=== PATIENT | female | born 1975 | race Caucasian/White ===

== ENCOUNTER 2024-12-20 09:44 | Outpatient (AMB) | payer OTHER, SELFPAY ==
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
[2024-12-20 09:49] VITALS: BP 110/64; PULSE 74; O2SAT 98; BMI 28.4
--- OUTSIDE RECORDS SUMMARY | 2024-12-20 10:45 | XMS_ITS | Clinical Summary ---
Author Organization [facility] Address [address] [place] [address] Care Team Providers Care Phosphorus Processing Supervisor Name Role Phone Unavailable Primary Care Provider Unavailabl e Social History Tobacco Use Types Packs/Day Years Used Date Smoking Tobacco: Never Assessed Comments Unknown Sex and Gender Information Value Date Recorded Sex Assigned at Not on file Legal Sex Female 1:39 PM EDT Gender Identity Not on file Sexual Orientation Not on file Plan of Treatment Health Maintenance Due Date Last Done Comments Breast Cancer Screening 1975 DTaP,Tdap,and Td Vaccines (1 - Tdap) 1994 Hepatitis B Vaccines (1 of 3 - 19+ 3-dose series) 1994 Colorectal Cancer Screening: Colonoscopy 05/10/2024 Depression Screening 05/10/2024 HIV Screening 05/10/2024 Hepatitis C Screening 05/10/2024 Social Influencers of Health Screening 05/10/2024 COVID-19 Vaccine ( - 2023-2 5 season) 2024 Influenza Vaccine (#1) 2024 Cervical Cancer Screening: P ap Smear 05/22/2027 05/22/2024 HIB Vaccines Aged Out No longer eligi ble based on patient's age to complete this topic HPV Vaccines Aged Out No longer eligi ble based on patient's age to complete this topic Hepatitis A Vaccines Aged Out No long er eligible based on patient's age to complete this topic IPV Vaccines Aged Out No longer eligi ble based on patient's age to complete this topic MMR Vaccines Aged Out No longer eligi ble based on patient's age to complete this topic Meningococcal ACWY Vaccine Aged Out N o longer eligible based on patient's age to complete this topic Meningococcal B Vacine Aged Out No lo nger eligible based on patient's age to complete this topic Pneumococcal Vaccine: Pediat rics (0 to 5 Years) and At-Risk Patients (6 to 64 Years) Aged Out No longer eligi ble based on patient's age to complete this topic RSV Immunization Patients Un izabel 20 months Aged Out No longer eligible b ased on patient's age to complete this topic Varicella Vaccines Aged Out No longer eligible based on patient's age to complete this topic Procedures Procedure Name Priority Date/Time Associated Diagnosis Comments PAP SMEAR Routine 05/22/2024 12:00 AM EDT from Last 3 Months or Most Recently Relevant to Health Maintenance Results * Pap smear (05/22/2024 12:00 AM EDT) Case Results Patient Name: COURTNEY VENEGAS MR#: [id number] Collected Date: 05/22/2024 Reported Date: 05/29/2024 Specimen #[id number] Final Diagnosis HPV request without Cytologic interpretation. See HPV results ?? Clinical Diagnosis Z11.51 Source: A: HPV only B: HPV Mandatory Electronically Signed Out By MICHAELA Su(ASCP) Addenda/Procedure s HPV DNA PROBE, MANDATORY Ordered: ?? 05/24/2024 Reported: ??05/26/2024 HPV HIGH RISK: NEGATIVE None of the following High Risk human papillomavirus (HPV) types has been detected: 16,18,31,33,35,39 ,45,51,52,56,58,5 9,66,and 68. ??The Aptima HPV nucleic acid amplification assay manufactured by [employer] and performed on the [employer] System was used for the qualitative detection of E6/E7 viral messenger RNA (mRNA) from 14 high-risk types of (HPV) in cervical specimens. <<NOTE>> Clinical guidelines for follow up of patients screened with HPV testing can be found in the following reference: Ronda WK , et al. Use of primary high risk human papillomavirus testing for cervical cancer screening: Interim clinical guidance, Gynecol Oncol. 2015 Nov, 136(2):178-82. Procedure/Adden dum Electronically Signed Out By System Interface Note: The Pap test is a screening test with an inherent false negative rate. Automated prescreening of all liquid based specimens is performed by the [employer] Imaging System unless otherwise stated. Test Performed by: [address] ??[id number] Carmenza Rodriguez M.D., Director HISTORICAL TESTING LAB RESULTING AGENCY 05/22/2024 Vanessa Rizo MD LAB CYTOLOGY ORDERABLES Final Re sult HISTORICAL TESTING LAB RESULTING AGENCY from Last 3 Months or Most Recently Relevant to Health Maintenance
--- OUTSIDE RECORDS SUMMARY | 2024-12-20 10:45 | XMS_ITS | Continuity of Care Document ---
Author Organization [facility] SCHEDUL[facility] Oncolog y Address [address] [place] [address]- Care Team Providers Care Signal Processing Engineer Name Role Phone Eliana Craig NP Primary Care Physician [place] [facility] [place] 11/19/24 - 12/19/24 [facility] PRODUCTION [facility]EDUL[facility] Oncology [address] [place] [address]- Encounter Type: Triage Allergies, Adverse Reactions, Alerts No Known Medication Allergies Medications Aloe Vera By Mouth, 0 Refills, Maintenance, 10/10/24 11:09:00 AM EST, Partial fill upon patient request if the prescription is for a schedule II opioid drug. Start Date: 10/10/24 Status: Ordered Repeat number: 1 Chondroitin-Glucosamine By Mouth, Daily, 0 Refills, Maintenance, 10/17/23 10:37:00 AM EST, Partial fill upon patient request if the prescription is for a schedule II opioid drug. Start Date: 10/17/23 Status: Ordered Repeat number: 1 ibuprofen 800 mg oral tablet 800 mg, 1, tablet, By Mouth, Every 8 hours, # 30 tablet, Refills 0, Tot. Refills 0, Maintenance, 11/15/24 4:28:00 PM EST, Route to Pharmacy Electronically, [id number], Partial fill upon patient request if the prescription is for a schedule II opioid drug., 157.48, cm, 11/15/24 12:52:00 EST, Height, 69.2, kg, 11/15/24 12:52:00 EST, Dry Weight Start Date: 11/15/24 Status: Ordered Quantity: 30.0 Unit: tablet Repeat number: 1 letrozole 2.5 mg oral tablet 1 tablet = 2.5 mg, By Mouth, Daily, # 90 tablet, 1 Refills, Maintenance, 09/24/24 1:39:00 PM EST, Tablet, [facility] #[id number], Partial fill upon patient request if the prescription is for a schedule II opioid drug., 156.1, cm, 08/22/24 14:15:00 EST, Height, 68.9, kg, 05/30/24 15:29:00 EDT, Dry Weight Start Date: 09/24/24 Stop Date: 11/23/24 Status: Ordered Quantity: 90.0 Unit: tablet Repeat number: 2 levocetirizine 5 mg oral tablet 0 Refills, Maintenance, 10/10/24 11:09:00 AM EST, Partial fill upon patient request if the prescription is for a schedule II opioid drug. Start Date: 10/10/24 Status: Ordered Repeat number: 1 MiraLax = 17 Gm, By Mouth, Daily, 0 Refills, Maintenance, 09/26/23 1:04:00 PM EST, Partial fill upon patient request if the prescription is for a schedule II opioid drug. Start Date: 09/26/23 Status: Ordered Repeat number: 1 Physical Therapy and Occupational therapy evaluation and treatment Physical Therapy and Occupational therapy evaluation and treatment, See Instructions, # 1 each, Refills 0, Tot. Refills 0, Maintenance, Physical Therapy and Occupational therapy evaluation and treatment for right axillary cording and decreased range of motion., 09/18/24 2:25:00 PM EST, Supply Start Date: 09/18/24 Status: Ordered Quantity: 1.0 Unit: each Repeat number: 1 Tylenol 8 Hour 650 mg oral tablet, extended release 2 tablet = 1,300 mg, By Mouth, Every 8 hours, PRN as needed for fever, # 24 tablet, 0 Refills, Maintenance, 09/26/23 1:04:00 PM EST, ER Tablet, Partial fill upon patient request if the prescription is for a schedule II opioid drug. Start Date: 09/26/23 Status: Ordered Quantity: 24.0 Unit: tablet Repeat number: 1 Vitamin C By Mouth, Daily, 0 Refills, Maintenance, 09/26/23 1:04:00 PM EST, Partial fill upon patient requestif the prescription is for a schedule II opioid drug. Start Date: 12/19/23 Status: Ordered Repeat number: 1 Vitamin D3 1000 intl units oral capsule 1 capsule = 25 mcg, By Mouth, Daily, 0 Refills, Maintenance, 09/26/23 1:04:00 PM EST, Partial fill upon patient request if the prescription is for a schedule II opioid drug. Start Date: 09/26/23 Status: Ordered Repeat number: 1 Problem List Condition Confirmation Course Effective Dates Status H ealth Status Informant Breast cancer Confirmed Active Cervical stenosis (uterine cervix) Confirmed Active Follow-up examination after gynecological surgery Confirmed Active Social History Social History Type Response Smoking Status Never (less than 100 in lifetime) entered on: 09/26/23 Sex Sex Representation Female (finding) Patient Care team information Care Team Personnel Name: Kiara VALLECILLO, Eliana Michael Position: [facility] Associate Professional Member Role: PCP Address: [address] [place] [address] Emergency Medicine [address] Telecom: Name: Angela Franco RN Position: [facility] Onco RN Member Role: Primary Care Nurse Name: Roney Lai RN Position: [facility] Onco RN Member Role: Primary Care Nurse Care Team Related Persons Name: CHINA PRADO Insurance Providers Guarantor name: [facility] Plan Information #: 1 Payer: RAULITO SILVA Member Number: NA Policy Number: NA Group Number: NA
--- OUTSIDE RECORDS SUMMARY | 2024-12-20 10:45 | XMS_ITS | Continuity of Care Document ---
Author Organization [facility] ter Address [address] [place] [address]- Care Team Providers Care Cloth Presser Name Role Phone Kiara VALLECILLO, Eliana Michael Primary Care Physician Encounter [facility] Date(s): 10/25/24 - 11/24/[address] [address]- Attending Physician: Jenifer Corrigan MD Admitting Physician: Jenifer Corrigan MD Encounter Type: Preadmit Daystay Allergies, Adverse Reactions, Alerts No Known Medication Allergies Medications acetaminophen 650 mg oral tablet, extended release 1 tablet = 650 mg, By Mouth, Every 8 hours, for 10 days, # 30 tablet, 0 Refills, Acute 11/25/24 4:28:00 PM EST, 11/15/24 4:28:00 PM EST, ER Tablet, [facility] #[id number], Partial fill upon patientrequest if the prescription is for a schedule II opioid drug., 157.48, cm, 11/15/24 12:52:00 EST, Height, 69.2, kg, 11/15/24 12:52:00 EST, Dry Weight Start Date: 11/15/24 Stop Date: 11/25/24 Status: Ordered Quantity: 30.0 Unit: tablet Repeat number: 1 Aloe Vera By Mouth, 0 Refills, Maintenance, [...] 4:28:00 PM EST, Route to Pharmacy Electronically, [facility] #[id number], Partial fill upon patient request if the [...] Refills, Maintenance, 09/24/24 1:39:00 PM EST, Tablet, [facility] #[id number], Partial fill upon patient request if the [...] Date: 09/26/23 Status: Ordered Repeat number: 1 Vitamin D3 1000 intl units oral capsule 1 capsule = 25 mcg, By Mouth, Daily, 0 Refills, Maintenance, 09/26/23 1:04:00 PM EST, Partial fill upon patient request if the prescription is for a schedule II opioid drug. Start Date: 09/26/23 Status: Ordered Repeat number: 1 Problem List Condition Confirmation Course Effective Dates Status Health St atus Informant Breast cancer Confirmed Active Cervical stenosis (uterine cervix) Confirmed Active Social History Social History Type Response Smoking Status Never (less than 100 in lifetime) entered on: 09/26/23 Sex Sex Representation Female (finding) Patient Care team information Care Team Personnel Name: Eliana Craig NP Position: [facility] Associate Professional Member Role: PCP Address: [address] [place] [address] Emergency Medicine [address] Telecom: Name: Angela Franco RN Position: [facility] RN Member Role: Primary Care Nurse Name: Roney Lai RN Position: [facility] RN Member Role: Primary Care Nurse Care Team Related Persons Name: CHINA PRADO Insurance Providers Guarantor name: COURTNEY VENEGAS Health Plan Information #: 1 Payer: PRIME Member Number: [id number] Policy Number: NA Group Number: NA Health Plan Information #: 2 Payer: PRIME Member Number: [id number] Policy Number: NA Group Number: NA
--- OUTSIDE RECORDS SUMMARY | 2024-12-20 10:45 | XMS_ITS | Patient Health Record ---
Author Organization [facility] Address [address] [place] [address] Care Team Providers Care Outdoor Education Teacher Name Role Phone Cari Escobar Unavailable [phone] ALLERGIES No Known Allergies REASON FOR REFERRAL No Information MEDICATIONS Medication SIG (Take, Route, Fr equency, Duration) Notes Start Date End Date Status Nextstellis 3-14.2 MG 1 tablet Orally On ce a day for 90 day(s) 02/21/2023 Active Estradiol 0.1 MG/GM 1 gram Vaginal Two t imes a Week for 90 days Active Progesterone 100 MG as directed Orally Active Veozah 45 MG 1 tablet Orally Once a day for 90 day(s) 06/02/2023 Active SOCIAL HISTORY Sex Assigned At : Social History Observation Description Sex Assigned At Unknown PROBLEMS Problem Type ICD Code Onset Dates Problem Status W/U Status Risk SNOMED Code Notes Problem Irregular menses (N92.6) Active confirmed 27623911 Problem Perimenopausal symptoms (N95.1) Active confirmed 126364988 Encounters Encounter Location Date Provider Diagnosis [facility] [address] [place] [address] 01/24/2024 Cari Escobar PLAN OF TREATMENT Pending Test Test Name Order Date TISSUE PATHOLOGY, GROSS ONLY 02/21/2023 Insurance Providers Payer Name Payer Address Payer Phone Subscriber Number Group Number Insured Name Patient Relationship to Insured Coverage Start Date Coverage End Date [address] [place] [address] [id number] Chelle Ramesh Self - patient is the insured MEDICAL (GENERAL) HISTORY Surgical History Surgery Date(Month/Year) B/l ear tubes B/l breast reduction and implants (velma e), abdominoplasty 2004 B/l implant replacement (encapsulation) 2005
--- OUTSIDE RECORDS SUMMARY | 2024-12-20 10:45 | XMS_ITS | Continuity of Care Document ---
Author Organization [facility] Address [address] [place] [address]- Care Team Providers Care Electrical Calibrator Name Role Phone Kiara VALLECILLO, Eliana Michael Primary Care Phys[id number] Date[facility]12[facility] - 11/22/[facility] [address] [place], [place] [address] Discharge Disposition: A-D/C Home Attending Physician: Gamal Sweeney MD Admitting Physician: Mitchell Valenzuela MD Referring Physician: Eliana Craig NP Encounter Type: Disch Recurring OP Allergies, Adverse Reactions, Alerts No Known Medication Allergies Medications acetaminophen 650 mg oral tablet, extended release 1 tablet = 650 mg, By Mouth, Every 8 hours, for 10 days, # 30 tablet, 0 Refills, Acute 11/25/24 4:28:00 PM EST, 11/15/24 4:28:00 PM EST, ER Tablet, [facility] #[id number], Partial fill upon patientrequest if the prescription [...] 4:28:00 PM EST, Route to Pharmacy Electronically, [facility] #[id number], Partial fill upon patient request if the [...] Refills, Maintenance, 09/24/24 1:39:00 PM EST, Tablet, [facility] #[id number], Partial fill upon patient request if the [...] Team Personnel Name: Eliana Craig NP Position: [facility] Associate Professional Member Role: PCP Address: [address] [place] [address] Emergency Medicine [address] Telecom: Name: Angela Franco RN Position: [facility] Onco RN Member Role: Primary Care Nurse Name: Roney Lai RN Position: [facility] Onco RN Member Role: Primary Care Nurse Care Team Related Persons Name: CHINA PRADO Insurance Providers Guarantor name: COURTNEY VENEGAS Health Plan Information #: 1 Payer: PRIME Member Number: [id number] Policy Number: NA Group Number: NA Health Plan Information #: 2 Payer: [facility] Member Number: [id number] Policy Number: NA Group Number: NA
--- OUTSIDE RECORDS SUMMARY | 2024-12-20 10:45 | XMS_ITS ---
Author Organization [employer] Address [facility] [address] [place] [address] Care Team Providers Care Business Analyst Project Manager Name Role Phone ShawnBetoia Unavailable [phone] REASON FOR VISIT Well Woman/Yearly/Annual Encounters Encounter Location Date Provider Diagnosis [address] [address] [place] [address] 01/24/2024 Cari Escobar PLAN OF TREATMENT No Information Progress Notes * Chelle VENEGASDOB:1975 (49 yo F)Acc No.[id number]:01/24/2024 Est. Patient Well woman Patient:??Chelle VENEGAS Provider:??Cari Escobar MD :1975?Age:48 Y?Sex:Fe male Date:01/24/2024 Address:[address] [place] [address] [facility] Structured Data:Intergy (1) : 018; Intergy (2) : 154; Intergy (3) : 306 Subjective: * Chief Complaints: * ?1. Well Woman/Yearly/A nnual. * Medical History:?? Objective: Assessment: Plan: * Treatment: * Billing Information: * Visit Code:?? * Procedure Codes:?? * Sign off status: Pending * Provider:??Cari Escobar MD Date:??01/23
--- OUTSIDE RECORDS SUMMARY | 2024-12-20 10:45 | XMS_ITS | Continuity of Care Document ---
Author Organization [facility]. If a dditional information is needed, contact Health Information Management at [phone] Address [address] [place] [address] Phone Care Team Providers Care Training Program Assistant Name Role Phone Unavailable Unavailable Unavailable Unavailable Unavailable Unavailable Unavailable Unavailable Unavailable Unavailable Unavailable Unavailable Problems Pain in right lower limb Onset:27-Jul-2023 Lito Ram MD Contusion of toe Allergies and Adverse Reactions No Known Allergies(Allergy) Onset: 12-Sep-2013 Medications polyethylene glycol 3350 170 00 MG Powder for Oral Solution;17 GRAM ORAL DAILY Start:26-Jul-2023 Comments:17 GM PO DAILY potassium chloride 10 MEQ Ex tended Release Oral Tablet;10 MILLIEQUIVALENT ORAL DAILY Start:12-Sep-2013 Comments:10 MEQ PO DAILY MULTIVITAMINS CAPSULES;1 CAP SIRI ORAL DAILY Start:12-Sep-2013 Comments:1 CAP PO DAILY Social History Smoking Status Never smoked tobacco Recorded: 26-Jul-2023
--- OUTSIDE RECORDS SUMMARY | 2024-12-20 10:45 | XMS_ITS | Patient Health Record ---
Author Organization [facility] Address [address] [place] [address] [address] [place] [address] Care Team Providers Care Cad Application Support Specialist Name Role Phone Cari Escobar Unavailable [phone] ALLERGIES No Known Allergies REASON FOR REFERRAL No Information MEDICATIONS Medication SIG (Take, Route, Fr equency, Duration) Notes Start Date End Date Status Progesterone 100 MG as directed Orally Active Veozah 45 MG 1 tablet Orally Once a day for 90 day(s) 06/02/2023 Active Estradiol 0.1 MG/GM 1 gram Vaginal Two t imes a Week for 90 days Active Nextstellis 3-14.2 MG 1 tablet Orally On ce a day for 90 day(s) 02/21/2023 Active SOCIAL HISTORY Tobacco Use: Social History Observation Description Date Details (start date - stop date) Never Smoker NA - NA Sex Assigned At : Social History Observation Description Sex Assigned At Unknown Tobacco Use/Smoking Question Answer Notes Are you a nonsmoker? Yes Alcohol Screen (Audit-C) Question Answer Notes Did you have a drink contain ing alcohol in the past year? Yes How often did you have a dri nk containing alcohol in the past year? Monthly or less (1 point) How many drinks did you have on a typical day when you were drinking in the past year? 1 or 2 drinks (0 point) How often did you have 6 or more drinks on one occasion in the past year? Never (0 point) Points 1 Interpretation Negative Sexual History Question Answer Notes Had sex in the past 12 months (vaginal, oral, or anal)? 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 Exercise: 1-2/wk biking, yoga Alcohol: socially Denies cigarrete or drug use PROBLEMS Problem Type ICD Code Onset Dates Problem Status W/U Status Risk SNOMED Code Notes Problem Anxiety (F41.9) Active confirmed 639974 02 Problem Irregular menses (N92.6) Active confirmed 98985176 Problem History of breast implant (Z98.82) Active confirmed 771868862 Problem Right lower quadrant abdominal pain (R10.31) Active confirmed 157364846 Problem Perimenopausal symptoms (N95.1) Active confirmed 952686181 Problem Hoarseness of voice (R49.0) Active confirmed 18275138 Encounters Encounter Location Date Provider Diagnosis [facility] [address] [place] [address] 01/24/2024 Cari Escobar [facility] [address] [place] [address] 02/08/2024 Cari Escobar PLAN OF TREATMENT Pending Test Test Name Order Date Ultrasound : Breasts, bilateral 03/11/20 Diagnostic Mammogram 03/11/2021 MRI : Knee, left 09/19/2018 Ultrasound : Abdomen and Pelvis 07/16/20 18 MRI : Knee, right 09/19/2018 TISSUE PATHOLOGY, GROSS ONLY 02/21/2023 MEDICAL (GENERAL) HISTORY Medical History History ICD Code Hormonal Therapy Surgical History Surgery Date(Month/Year) B/l implant replacement (encapsulation) 2004 B/l breast reduction and implants (salin e), abdominoplasty 2004 B/l ear tubes breast lift Adriana [facility] Hospitalization History Reason Date(Month/Year) Child 02/23/1999, 1
--- OUTSIDE RECORDS SUMMARY | 2024-12-20 10:45 | XMS_ITS | Continuity of Care Document ---
Author Organization [facility] Address [address] [place] [address]- Care Team Providers Care Cargo Operations Agent Name Role Phone Eliana Craig NP Primary Care Physician Encounter [facility] Date(s): 11/05/24 - 12/05/24 [facility] [address] [place] [address]- Encounter Type: Triage Allergies, Adverse Reactions, Alerts [...] 4:28:00 PM EST, Route to Pharmacy Electronically, [facility] #[id number], Partial fill upon patient request if the [...] Refills, Maintenance, 09/24/24 1:39:00 PM EST, Tablet, [facility] #[id number], Partial fill upon patient request if the [...] Personnel Name: Kiara VALLECILLO, Eliana Michael Position: [facility] Associate Professional Member Role: PCP Address: [address] [place] [address] Emergency Medicine [address] Telecom: Name: Angela Franco RN Position: [facility] Onco RN Member Role: Primary Care Nurse Name: Roney Lai RN Position: [facility] Onco RN Member Role: Primary Care Nurse Care Team Related Persons Name: CHINA PRADO Insurance Providers Guarantor name: [facility] Plan Information #: 1 Payer: RAULITO SILVA Member Number: NA Policy Number: NA Group Number: NA
--- OUTSIDE RECORDS SUMMARY | 2024-12-20 10:45 | XMS_ITS ---
Author Organization [employer] Address [facility] [address] [place] [address] Care Team Providers Care Staff Midwife/Apprenticeship Director Name Role Phone EscobarBeto bradleyia Unavailable [phone] REASON FOR VISIT Est Patient: Annual Preventative Exam and Chronic Care Visit Encounters Encounter Location Date Provider Diagnosis [facility] [address] [address] [place] [address] 02/08/2024 Cari Escobar PLAN OF TREATMENT No Information Progress Notes * Chelle RAMESHDOB:1975 (49 yo F)Acc No.[id number]:02/08/2024 Est. Patient Well woman Patient:??Chelle RAMESH Provider:??Cari Escobar MD :1975?Age:48 Y?Sex:Fe male Date:02/08/2024 Address:[address] [place] [address] [id number] Structured Data:Intergy (1) : 018; Intergy (2) : 154; Intergy (3) : 306 Subjective: * Chief Complaints: * ?1. Est Patient: Annual Preventative Exam and Chronic Care Visit. * Medical History:?? Objective: Assessment: Plan: * Treatment: * Billing Information: * Visit Code:?? * Procedure Codes:?? * Sign off status: Pending * Provider:??Cari Escobar MD Date:??02/07
--- OUTSIDE RECORDS SUMMARY | 2024-12-20 10:46 | XMS_ITS | Continuity of Care Document ---
Author Organization [facility] Address [address] [place] [address]- Care Team Providers Care Melter Supervisor Open Hearth Furnace Name Role Phone Kiara VALLECILLO, Eliana Michael [facility] Phys[id number] Date[facility] 11/27[facility]24 - 11/28/24 [facility] [place], [place] [address] Discharge Disposition: A-D/C Home Attending Physician: Gamal Sweeney MD Admitting Physician: Gamal Sweeney MD Referring Physician: Eliana Craig NP Encounter [...] 4:28:00 PM EST, Route to Pharmacy Electronically, [facility] #[id number], Partial fill upon patient request if the [...] Refills, Maintenance, 09/24/24 1:39:00 PM EST, Tablet, [facility] #[id number], Partial fill upon patient request if the [...] Personnel Name: Kiara VALLECILLO, Eliana Michael Position: [facility] Associate Professional Member Role: PCP Address: [address] [place] [address] Emergency Medicine [address] Telecom: Name: Angela Franco RN Position: [facility] Onco RN Member Role: Primary Care Nurse Name: Roney Lai RN Position: [facility] Onco RN Member Role: Primary Care Nurse Care Team Related Persons Name: CHINA PRADO Insurance Providers Guarantor name: COURTNEY THEO Health Plan Information #: 1 Payer: [employer] Member Number: [id number] Policy Number: NA Group Number: NA Health Plan Information #: 2 Payer: PRIME Member Number: [id number] Policy Number: NA Group Number: NA
--- OUTSIDE RECORDS SUMMARY | 2024-12-20 10:46 | XMS_ITS | Patient Health Record ---
Author Organization [facility] Address [address] [place] [address] Care Team Providers Care Automatic Drilling Machine Operator Name Role Phone Ez BAKER, George Unavailable [phone] Allergies No Known Allergies Reason For Referral No Information Medications Medication SIG (Take, Route, Frequency, Duration) Notes Start Date End Date Status Hydrocortisone (Perianal) 2.5 % 1 application Externally Twice a day for 14 days 07/19/2022 Active Clenpiq 10-3.5-12 MG-GM -GM/160ML as directed Orally as directed for 1 days 07/19/2022 Active Progesterone 100 MG as directed Orally 07/19/2022 Active Pantoprazole Sodium 40 MG 1 tablet Orall y Once a day for 90 days 07/19/2022 Active Immunizations Vaccine Route Administration Date Status Comme nts COVID-19 Pfizer 30mcg/0.3 mL dose Unknown 07/19/2021 Ad ministered Social History Tobacco Use: Social History Observation Description Date Details (start date - stop date) Never Smoker NA - NA Tobacco Use/Smoking (Archived) Question Answer Notes Are you a? nonsmoker Additional Findings: Tobacco Non-User Current no n-smoker Alcohol Screen (Audit-C) Question Answer Notes Did you have a drink containing alcohol in the p ast year? No Points 0 Interpretation Negative Problems Problem Type SNOMED Code ICD Code Onset Dates Problem Status W/U Status Risk Notes Problem Constipation (31997259) Constipation (K59.00) Active confirmed Plan Of Treatment Future Test Test Name Order Date Colonoscopy 07/26/2022 EGD 07/26/2022 Insurance Providers Payer Name Payer Address Payer Phone Subscriber Number Group Number Insured Name Patient Relationship to Insured Coverage Start Date Coverage End Date [facility] [address] [place] [address] [id number] Chelle Ramesh Self - patient is the insured Medical (General) History Surgical History Surgery Date(Month/Year) Ear Tubes Tummy Tuck Breast Lift
--- OUTSIDE RECORDS SUMMARY | 2024-12-20 10:46 | XMS_ITS | Clinical Summary ---
Author Organization [facility] Address [address] [place] [address] Care Team Providers Care Training Project Manager Name Role Phone Unavailable Primary Care Provider Unavailabl e Social History Tobacco Use Types Packs/Day Years Used Date Smoking Tobacco: Never Assessed Sex and Gender Information Value Date Recorded Sex Assigned at Not on file Gender Identity Not on file Sexual Orientation Not on file Job Start Date Occupation Industry Not on file Not on file Not on file Plan of Treatment Not on file
--- OUTSIDE RECORDS SUMMARY | 2024-12-20 10:46 | XMS_ITS ---
Author Organization [facility] Address [address] [place] [address] Care Team Providers Care Orientor Name Role Phone Cari Escobar Unavailable [phone] REASON FOR VISIT Well Woman/Yearly/Annual Encounters Encounter Location Date Provider Diagnosis [facility] [address] [place] [address] [address] [place] [address] 01/24/2024 Cari Escobar PLAN OF TREATMENT No Information
== END 2024-12-20 10:43 | disposition home or self-care (01) ==
LOC: HO.HMCH 09:44
DX: C50.919 Malignant neoplasm of unspecified site of unspecified female breast (principal); K59.00 Constipation, unspecified; M25.561 Pain in right knee; R13.10 Dysphagia, unspecified

== ENCOUNTER → 2024-12-20 09:44 | Outpatient (BNVA) | payer OTHER, SELFPAY | DX: C50.919 Malignant neoplasm of unspecified site of unspecified female breast (principal); K59.00 Constipation, unspecified; M25.561 Pain in right knee; R13.10 Dysphagia, unspecified | CPT/HCPCS: 96127; 99202 ==

== ENCOUNTER 2025-03-17 10:54 | Outpatient (AMB) | payer OTHER, SELFPAY ==
--- NOTE | 2025-03-17 10:59 | A.OFFPC_ITS ---
Vital Signs 03/17/25 11:02 Height 5 ft 2 in Weight 157 lb 2 oz BMI 28.7 BP 110/60 Blood Pressure Location Lt brachial Position Sitting Pulse 67 Pulse Source Pulse Oximeter Temp 97.1 F Temp Source Temporal Artery Scan Pulse Oximetry (%) 98 Oxygen Delivery Method Room Air Intake Visit Reasons: annual exam Intake Note: Patient is here today for a physical. Motor Vehicle Or Caravan Salesperson Required: No Gi Technician: Not Required per policy Accompanied by: Self / Same As Patient Allergies No Known Allergies Allergy (Verified 03/17/25 11:20) Medication List - Last Reconciled 03/17/25 by Maddy uDnne PA-C acetaminophen ER 650 mg PO Q8H ibuprofen mg PO 3XD letrozole mg PO DAILY levocetirizine 5 mg PO DAILY loratadine mg PO DAILY PRN tretinoin 0.025% appl topical DAILY urea 40% appl topical Tobacco use date assessed: 03/17/25 Dental Screening Dental Screen Date: 12/20/24 HPI annual exam HPI Details 49-year-old female with past medical his tory of breast cancer last seen 12/2024 coming in for annual exam. Presenting with management needs for axillary web syndrome, recent constipation problems, and bilateral joint pain, specifically in the hip and knee. 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 Constipation has been chronic, with periods of abdominal pain severe enough to require ER inte rvention. Benefiber altered the laxative effect, showing improvement. The right hip displays pain exacerbated by moments requiring standing; causation by a past repetitive onset knee movement during physical therapy has been started. Knee pain began amidst post-surgical yoga participation, with tearing sensations causing intermittent distress. An insect bite, likely non-tick as evaluated through telehealth consultation, showed initial intense local reaction but resolved without antibiotics. Oncologist: [facility] Gamal Lakhani Sole Rounder: [facility] Dr. Vanessa Lombardo colonoscopy: appt with gastro in May [facility] Surgical History History of cervical biopsy H/O liposuction H/O abdominoplasty Hx of breast implants, bilateral H/O cervical polypectomy H/O lumpectomy Family History Father Prostate cancer Other Diabetes Hypertension Osteoporosis Social History Housing: House Patient Tobacco Use Status: Never used Tobacco e-Cigarette/Vaping Use: Never Used Second Hand Smoke Exposure: No service: No Current occupational status: employed Current occupational exposures/hazards: No Cognitive needs: No Hearing needs: No Vision needs: No Questionnaire Thrive Questionnaire Date Thrive assessed: 12/20/24 I am a: Patient What is your living situation today?: I have a steady place to live Within the past 12 months, did the food you bought not last and you didn't have the money to get more?: Never true Within the past 12 months, did you worry whether your food would run out before you got money to buy more?: Never true Do you have trouble paying for medicines?: No Do you have trouble getting transportation to medical appointments?: No Do you have trouble paying your heating and electricity bill?: No Do you have trouble taking care of your child, family member or friend?: No Do you have trouble with day-to-day activities such as bathing, preparing meals, shopping, managing finances, etc.?: No Are you currently unemployed and looking for a job?: Yes Are you interested in more education?: Yes Please select the resources that you would like help with: Job search/training THRIVE Score: 0 LORRAINE-7 AMB Questionnaire LORRAINE-7 Date LORRAINE - 7 assessed: 12/20/24 Source: Developed by Drs. Bruce Jamison, Gladys Mcintosh, Hernan Larkin and colleagues, with an educational margi from [employer]. Review of Systems Const Denies body aches, Denies chills, Denies fever(s), Denies headache(s) and Denies poor appetite Eyes Reports no additional complaints ENT Reports dysphagia, Denies dizziness, Denies headache(s) and Denies odynophagia Card Denies chest pain, Denies syncope, Denies edema, Denies irregular heart rhythm, Denies lightheadedness and Denies dyspnea Resp Denies cough and Denies dyspnea GI Reports abdominal pain (w/ constipation ), Reports constipation, Reports dyspha paulo, Denies diarrhea, Denies nausea, Denies odynophagia and Denies vomiting Reports no additional complaints Musc Reports no additional complaints and Denies abnormal gait Skin/Breast Reports system reviewed and no additional complaints, except as documented Neuro Denies abnormal gait, Denies dizziness, Denies syncope and Denies headache(s) Psych Reports no additional complaints Physical exam (Primary Care) Vital Signs: Last Vital Signs Temp 97.1 F 03/17/25 11:02 Pulse 67 03/17/25 11:02 BP 110/60 03/17/25 11:02 Pulse Ox 98 03/17/25 11:02 Oxygen Delivery Method Room Air 03/17/25 11:02 BMI result Body Mass Index 28.7 Tobacco/Smoking Status: Tobacco use Status Tobacco use date assessed 03/17/25 03/17/25 11:09 Patient Tobacco Use Status Never used Tobacco 03/17/25 11:00 e-Cigarette/Vaping Use Never Used 03/17/25 11:00 Thrive Assessment: Date of Thrive Assessment Date Thrive assessed 12/20/24 03/17/25 11:00 Const General: cooperative, healthy appearing, comfortable and no acute distress Orientation/consciousness: patient oriented x3 HENMT Head: Yes normocephalic Ears: hearing grossly normal bilaterally General nose exam: Normal external nose present Face and sinus: Yes normal facial exam and Yes sinuses nontender Mouth: Normal oral and palatal mucosa present and tongue normal Throat: Yes posterior oropharynx normal Eyes General: appearance normal, both eyes and all related structures Conjunctivae: conjunctivae normal Pupils: Equal, round and reactive pupils present EOM: EOMs intact bilaterally and No Nystagmus present Neck Neck: Yes full ROM and Yes no lymphadenopathy Chest Chest palpation & inspection: normal inspection of the chest Resp Effort & Inspection: normal respiratory effort Auscultation: clear to auscultation bilaterally, no crackles, no rales, no rhonchi and no wheezes Cardio Rate: regular rate Rhythm: regular rhythm Peripheral pulses: radial pulses present and dorsalis pedis present GI Inspection: Yes normal to inspection and No Abdominal wall edema Palpation (GI): Soft to palpation, not firm and nontender Auscultation: normal bowel sounds Rectal Exam - Female: deferred General: Yes no CVA tenderness Back/Spine/Pelvis Other: No tenderness to palpation over right hip Back: no CVA tenderness Skin General skin exam: no rashes or lesions noted Neuro General: patient oriented x3 Cranial nerves: Yes Equal, round and reactive pupils present, Yes Midline tongue present, Yes Ability to bilaterally elevate shoulders present and No Nystagmus present Gait exam (Neuro): Normal gait present Extrem Other: Tenderness to palpation over bilateral knees and no swelling General: Yes normal to inspection, Yes full ROM and No edema Psych Speech and movement: Normal speech and movement present Affect: normal affect Attitude: cooperative Insight: Good insight present (Psych) Judgement: Good judgement present (Psych) Coding Level of Care Code Est Pt Prev Care 40-64y(37815) Diagnoses Annual physical exam Z00.00 Axillary web syndrome L76.82; L90.5 Constipation K59.00 Breast cancer C50.919 Right hip pain M25.551 Left knee pain M25.562 Bug bite W57.XXXA Assessment & Plan Assessment & Plan (1) Annual physical exam: Code(s): Z00.00 - Encounter for general adult medical examination without abnormal findings Category: Medical Plan: Patient is up-to-date on all recommended routine screenings and vaccinations for her age. She has been appointment in May with Gastroenterology for colonoscopy screening. Blood work is up-to-date and has been reviewed with the patient today. Healthy diet and regular exercise is encouraged. (2) Axillary web syndrome: Code(s): L76.82 - Other postprocedural complications of skin and subcutaneous tissue; L90.5 - Scar conditions and fibrosis of skin Category: Medical Plan: Recently diagnosed by physical therapist. Continue to work with PT (3) Constipation: Code(s): K59.00 - Constipation, unspecified Category: Medical Plan: Constipation has improved with increased fluid intake and fiber supplement. Continue on Benefiber. Reviewed 3 rules of constipation; stay well hydrated, exercise as tolerated and increase fiber intake (4) Breast cancer: Comment: 05/2023 s/p lumpectomy and radiation [facility] Lupron shots every 3 months and Letrozole daily Code(s): C50.919 - Malignant neoplasm of unspecified site of unspecified female breast Category: Medical Plan: Continue to follow with [facility] and say up-to-date with routine mammograms. (5) Right hip pain: Code(s): M25.551 - Pain in right hip Category: Medical Plan: Patient is currently working with physical therapy for right hip pain. She is also requesting an x-ray in order has been placed (6) Left knee pain: Code(s): M25.562 - Pain in left knee Category: Medical Plan: Patient having left knee pain and is requesting knee x-ray which was ordered today. I offered physical therapy which was declined today (7) Bug bite: Code(s): W57.XXXA - Bitten or stung by nonvenomous insect and other nonvenomous arthropods, initial encounter Category: Medical Plan: Patient has a bug bite on her arm that is previously evaluated by walk-in clinic. Patient is requesting a Lyme panel. Low suspicion for tick bite at this time as no tick was found and by his more consistent with spider or mosqui to bite. Lyme panel was ordered at patient request Plan This note was constructed using voice recognition software. While every effort has been made to ensure accuracy and engineer automated equipment, still areas may have been included sometimes these areas may affect the content or meeting of the given symptoms. Total time spent caring for the patient today was 30 minutes. This includes time spent before the visit reviewing the chart, time spent during the visit, and time spent after the visit and documentation. Patient was informed and verbally consented to the use of an ambient scribe for clinic note documentation during this visit. Orders: Orders XR hip RT min 2V Today M25.551 - Pain in right hip XR knee LT 2V Today M25.562 - Pain in left knee Lyme IgG/IgM w/reflex to WB Today W57.XXXA - Bitten or stung by nonvenomous insect and other nonvenomous arthropods, initial encounter
[2025-03-17 11:02] VITALS: BP 110/60; PULSE 67; TEMP 36.2; O2SAT 98; BMI 28.7
--- OUTSIDE RECORDS SUMMARY | 2025-03-17 12:24 | XMS_ITS | Continuity of Care Document ---
Author Organization [facility] Address [address] [place] [id number]- Care Team Providers Care National Accounts Recruiter Name Role Phone Eliana Craig NP Primary Care Physician [id number] Date(s): 02/05/25 - 03/16/[address] [address]- Encounter Diagnosis Procedure and treatment not carried out, unspecified reason(Final) - Discharge Disposition: A-D/C Home Attending Physician: Eliana Craig NP Admitting Physician: Not on Staff, Admitting MD Referring Physician: Not on Staff, Referring MD Encounter Type: Pre-OutPatient One Time Allergies, Adverse Reactions, Alerts No Known Medication [...] 4:28:00 PM EST, Route to Pharmacy Electronically, [facility] #[id number], Partial fill upon patient request if the prescription is for a schedule II opioid drug., 157.48, cm, 11/15/24 12:52:00 EST, Height, 69.2, kg, 11/15/24 12:52:00 EST, Dry Weight Start Date: 11/15/24 Status: Ordered Quantity: 30.0 Unit: tablet Repeat number: 1 letrozole 2.5 mg oral tablet 1 tablet, By Mouth, Daily, # 90 tablet, 0 Refills, Maintenance, 02/10/25 8:24:00 AM EDT, [facility] #[id number], 157.48, cm, 12/31/24 11:06:00 EDT, Height, 71.9, kg, 12/26/24 9:43:00 EDT, Dry Weight Start Date: 02/10/25 Status: Ordered Quantity: 90.0 Unit: tablet Repeat number: 1 levocetirizine 5 mg oral tablet 0 Refills, Maintenance, 10/10/24 11:09:00 AM EST, Partial fill upon patient request if the prescription is for a schedule II opioid drug. Start Date: 10/10/24 Status: Ordered Repeat number: 1 Lupron 0 Refills, Maintenance, 12/26/24 11:49:00 AM EDT, Partial fill upon patient request if the prescription is for a schedule II opioid drug. Start Date: 12/26/24 Status: Ordered Repeat number: 1 MiraLax = [...] Date: 09/26/23 Status: Ordered Repeat number: 1 Voltaren Arthritis Pain 1% topical gel 2.25 inches, Topically, 4 times a day, PRN Pain , Mild, use dosing card to measure a dose do not use on more than 2 bodyareas at the same time apply to clean, dry, intact skin, # 150 Gm, 0 Refills, Maintenance, 12/26/24 3:32:00 PM EDT, Gel, [facility] #[id number], Partial fill upon patient request if the prescription is for a schedule II opioid drug., 2.25 inches Topically 4 times a day,PRN:Pain , Mild,Instr:use dosing card to measure a dose; do not use on more than 2 bodyareas at the same time; apply to clean, dry, intact skin, 157.48, cm, 12/26/24 9:43:00 EDT, Height, 71.9, kg, 259:43:00 EDT, Dry Weight Start Date: 12/26/24 Status: Ordered Quantity: 150.0 Unit: g Repeat number: 1 Problem List Condition Confirmation [...] Team Personnel Name: Eliana Craig NP Position: S Associate Professional Member Role: PCP Address: [address] [place] [address] Emergency Medicine [address] Telecom: Name: Angela Franco RN Position: S Onco RN Member Role: Primary Care Nurse Name: Roney Lai RN Position: S Onco RN Member Role: Primary Care Nurse Care Team Related Persons Name: CHINA PRADO Insurance Providers Guarantor name: [facility] Information #: 1 Payer: [facility] Payer Identifier: NA Member Number: [id number] Group Number: [id number] Subscriber Identifier: [id number] Relationship to Subscriber: self Coverage Type: () Coverage Verification Date: NA Telecom: NA Address: NA
== END 2025-03-17 11:50 | disposition home or self-care (01) ==
LOC: HO.HMCH 10:55
DX: Z00.00 Encounter for general adult medical examination without abnormal findings (principal); L76.82 Other postprocedural complications of skin and subcutaneous tissue; C50.919 Malignant neoplasm of unspecified site of unspecified female breast; L90.5 Scar conditions and fibrosis of skin; K59.00 Constipation, unspecified; M25.551 Pain in right hip; M25.562 Pain in left knee; W57.XXXA Bitten or stung by nonvenomous insect and other nonvenomous arthropods, initial encounter

== ENCOUNTER 2025-04-21 09:24 | Outpatient (REF) | payer OTHER, SELFPAY ==
--- NOTE | ~2025-04-21 | XR_ITS ---
CLINICAL HISTORY: M25.551 - Pain in right hip Right hip two views Comparison: None provided Findings: No acute fracture or dislocation identified. Mild degenerative change in the hip joint. No radiopaque foreign body noted. Impression: No acute bony abnormality This document has been electronically signed by: Marcio Hawkins MD on 04/21/2025 20:03:40
--- NOTE | ~2025-04-21 | XR_ITS ---
CLINICAL HISTORY: M25.562 - Pain in left knee Left knee two views Comparison: None provided Findings: No acute fracture or dislocation noted. No significant joint effusion identified. No soft tissue foreign body. Impression: No acute bony abnormality This document has been electronically signed by: Marcio Hawkins MD on 04/21/2025 20:02:53
--- OUTSIDE RECORDS SUMMARY | 2025-04-21 09:50 | XMS_ITS | Continuity of Care Document ---
Author Name [facility] Organization [facility] Care Team Providers Care Table Maker Name Role Phone [facility] Unavailable Unavailable Medications Combined list of outpatient medications from Department of Defense and Veterans Affairs facilities.Medications provided include 1) outpatient medications from the last 15 months, and 2) patient-reported medications. Medication Details Route Status Patient Instructions Prescription Expires Prescription Number Last Dispense Date Ordering Provider Order Date Order Qty Source FLUCONAZOLE (FLUCONAZOL E), 150 MG, TABLET, ORAL, 'S LAB, 12 ea. BLIST PACK Cancele d [id number] : 2023 0 Pharmac y Data Transac tion Service Facilit y LEVOCETIRIZ INE DIHYDROCHLO RIDE (LEVOCETIRI ZINE DIHYDROCHLO RIDE), 5 MG, TABLET, ORAL, CAMBER PHARMACE, 90 ea. BOTTLE Active [id number] 4 2023 30 Pharmac y Data Transac tion Service Facilit y LEVOCETIRIZ INE DIHYDROCHLO RIDE (LEVOCETIRI ZINE DIHYDROCHLO RIDE), 5 MG, TABLET, ORAL, CAMBER PHARMACE, 90 ea. BOTTLE Active [id number] 4 2023 90 Pharmac y Data Transac tion Service Facilit y LEVOCETIRIZ INE DIHYDROCHLO RIDE (LEVOCETIRI ZINE DIHYDROCHLO RIDE), 5 MG, TABLET, ORAL, CAMBER PHARMACE, 90 ea. BOTTLE Active [id number] 4 2023 30 Pharmac y Data Transac tion Service Facilit y LORATADINE (loratadine ), 10 MG, TABLET, ORAL, GRANULES PHARMA, 300 ea. BOTTLE Active [id number] 4 2023 30 Pharmac y Data Transac tion Service Facilit y NITROFURANT OIN MONO-MACRO (NITROFURAN TOIN MONOHYD/M-C RYST), 100 MG, CAPSULE, ORAL, [employer]VOGEN INC, 100 ea. BOTTLE Active [id number] 4 2023 14 Pharmac y Data Transac tion Service Facilit y NITROFURANT OIN MONO-MACRO (NITROFURAN TOIN MONOHYD/M-C RYST), 100 MG, CAPSULE, ORAL, ALVOGEN INC, 100 ea. BOTTLE Active [id number] 4 2023 14 Pharmac y Data Transac tion Service Facilit y NYSTATIN-TR IAMCINOLONE (nystatin/t riamcinolon e acetonide), 227573-7.1, OINT. (G), TOPICAL, VIONA PHARMACEU, 60 g TUBE Cancele d [id number] : 2023 0 Pharmac y Data Transac tion Service Facilit y NYSTATIN-TR IAMCINOLONE (nystatin/t riamcinolon e acetonide), 880901-0.1, OINT. (G), TOPICAL, VIONA PHARMACEU, 60 g TUBE Active [id number] 4 2023 60 Pharmac y Data Transac tion Service Facilit y PHENAZOPYRI DINE HCL (phenazopyr idine HCl), 200 MG, TABLET, ORAL, [facility], 100 ea. BOTTLE Active [id number] 4 2023 9 Pharmac y Data Transac tion Service Facilit y PHENAZOPYRI DINE HCL (phenazopyr idine HCl), 200 MG, TABLET, ORAL, CORY [facility]OR[facility]O, 100 ea. BOTTLE Active [id number] 4 2023 9 Pharmac y Data Transac tion Service Facilit y Procedures Combined list of: 1) Procedures from Department of Veterans Affairs facilities going back up to thelast 18 months, not all VA non-surgical procedures are included; 2) All procedures from the Department of Defense facilities. Procedure Procedure Type Code Date Perfomer Comments Sourc e THERAPEUTIC, PROPHYLACTIC, O R DIAGNOSTIC INJECTION (SPECIFY SUBSTANCE OR DRUG); SUBCUTANEOUS OR INTRAMUSCULAR 03/21/2022 [facility] Social History Combined list of available smoking, tobacco, and other social history from Department of Defense and Veterans Affairs facilities. Social History Type Response Date Comment Sourc e This section is an empty social history section. [facility]
--- OUTSIDE RECORDS SUMMARY | 2025-04-21 09:52 | XMS_ITS | Clinical Summary ---
Author Organization [facility] Address [address] [place] [address] Care Team Providers Care Public Relations Assistant Name Role Phone Unavailable Primary Care Provider [...]
--- OUTSIDE RECORDS SUMMARY | 2025-04-21 09:52 | XMS_ITS | Clinical Summary ---
Author Organization [employer] [facility] Address [address] [place] [address] Care Team Providers Care Shuttle Final Inspector Name Role Phone Unavailable Primary Care Provider [...] 2023-2 5 season) 2024 Influenza Vaccine (#1) 2025 Cervical Cancer Screening: P ap Smear 05/22/2027 [...] age to complete this topic Meningococcal B Vaccine Aged Out No l onger eligible based on patient's age to complete this topic Pneumococcal Vaccine: Pediat rics (0 to 5 Years) and At-Risk Patients (6 to 49 Years) Aged Out No longer eligi ble [...] Case Results Patient Name: COURTNEY VENEGAS MR#: [id number] Collected Date: 05/22/2024 Reported Date: 05/29/2024 Specimen #[id number] Final Diagnosis HPV request without Cytologic interpretation. See HPV results Clinical Diagnosis Z11.51 Source: A: HPV only B: HPV Mandatory Electronically Signed Out By MICHAELA Su(ASCP) Addenda/Procedure s HPV DNA PROBE, MANDATORY Ordered: 05/24/2024 Reported: 05/26/2024 HPV HIGH RISK: NEGATIVE None of the following High Risk human papillomavirus (HPV) types has been detected: 16,18,31,33,35,39 ,45,51,52,56,58,5 9,66,and 68. The Aptima HPV nucleic acid amplification assay manufactured by [employer] and performed on the [employer] System was used for the qualitative detection [...] liquid based specimens is performed by the [employer] unless otherwise stated. Test Performed by: [address] [address] Carmenza Rodriguez M.D., Director HISTORICAL TESTING LAB RESULTING AGENCY 05/22/2024 Vanessa Rizo MD LAB CYTOLOGY ORDERABLES Final Re sult HISTORICAL TESTING LAB RESULTING AGENCY from Last 3 Months or Most Recently Relevant to Health Maintenance
[2025-04-23 21:23] LABS: Lyme Abs Screen <0.90 index
== END 2025-04-21 09:25 | disposition home or self-care (01) ==
LOC: HO.XRAY 09:24
DX: M25.551 Pain in right hip (principal); M25.562 Pain in left knee; W57.XXXA Bitten or stung by nonvenomous insect and other nonvenomous arthropods, initial encounter
CPT/HCPCS: 36415; 73502; 73560; 86617; 86618

== ENCOUNTER → 2025-04-21 09:43 | Outpatient (BNV) | payer OTHER, SELFPAY | PROVIDERS: Visit Provider Radiology Diagnostic Radiology | DX: M25.551 Pain in right hip (principal); M25.562 Pain in left knee | CPT/HCPCS: 73502; 73560 ==

== ENCOUNTER 2025-06-04 14:00 | Outpatient (AMB) | payer OTHER, SELFPAY ==
--- OUTSIDE RECORDS SUMMARY | 2024-01-24 06:30 | XMS_ITS ---
Author Organization [facility] Address [address] [place] [address] Care Team Providers Care Crisis Clinician Name Role Phone Cari Escobar Unavailable [phone] REASON FOR VISIT Well Woman/Yearly/Annual Encounters Encounter Location Date Provider Diagnosis [facility] [address] [place] [address] [address] Manuel [address] [place] [address] 01/24/2024 Cari Escobar PLAN OF TREATMENT No Information
--- OUTSIDE RECORDS SUMMARY | 2024-01-24 06:30 | XMS_ITS ---
Author Organization [facility] Address [address] [facility] [address] [place] [address] Care Team Providers Care Panel Wirer Name Role Phone EscobarBeto bradleyia Unavailable [phone] REASON FOR VISIT Well Woman/Yearly/Annual Encounters Encounter Location Date Provider Diagnosis Sergio BAKER, [facility] [address] [place] [address] 01/24/2024 Cari Escobar PLAN OF TREATMENT No Information Progress Notes * Chelle VENEGASDOB:1975 (49 yo F)Acc No.[id number]:01/24/2024 Est. Patient Well woman Patient: Chelle VENEGAS Provider: Cari Escobar MD :1975 Age:48 Y Sex:Female Date:01/24/2024 Address:[address] [place] [address] [id number] Structured Data:Intergy (1) : 018; Intergy (2) : 154; Intergy (3) : 306 Subjective: * Chief Complaints: * 1. Well Woman/Yearly/Annual. * Medical History: Objective: Assessment: Plan: * Treatment: * Billing Information: * Visit Code: * Procedure Codes: * Sign off status: Pending * Provider: Cari Escobar MD Date: 01/24/2024
--- OUTSIDE RECORDS SUMMARY | 2024-02-08 10:00 | XMS_ITS ---
Author Organization [facility] Address [address] [facility] [address] [place] [address] Care Team Providers Care Typesetters Printer Name Role Phone EscobarBeto bradleyia Unavailable [phone] REASON FOR VISIT Est Patient: Annual Preventative Exam and Chronic Care Visit Encounters Encounter Location Date Provider Diagnosis Sergio BAKER, [facility] [address] [place] [address] 02/08/2024 Cari Escobar PLAN OF TREATMENT No Information Progress Notes * Chelle VENEGASDOB:1975 (49 yo F)Acc No.[id number]:02/08/2024 Est. Patient Well woman Patient: Chelle VENEGAS Provider: Cari Escobar MD :1975 Age:48 Y Sex:Female Date:02/08/2024 Address:[address] [place] [address] [id number] Structured Data:Intergy (1) : 018; Intergy (2) : 154; Intergy (3) : 306 Subjective: * Chief Complaints: * 1. Est Patient: Annual Preventative Exam and Chronic Care Visit. * Medical History: Objective: Assessment: Plan: * Treatment: * Billing Information: * Visit Code: * Procedure Codes: * Sign off status: Pending * Provider: Cari Escobar MD Date: 02/08/2024
--- NOTE | 2025-06-04 14:06 | MHC.OFFVIS ---
Vital Signs 06/04/25 14:22 Height 5 ft 2 in Weight 154 lb 12.232 oz BMI 28.3 Intake Visit Reasons: Colonoscopy Screening Intake Note: Patient is seen in office for colonoscopy screening. Pt c/o: a colonoscopy was attempted back in [place] and was unsuccessful due to needing a stronger prep, pt suffer from constipation takes Miralax and Benafiber daily to help with bm, at times gets diarrhea, admits to acid reflux and bloating Sales & Service Associate Required: No Accompanied by: Self / Same As Patient Allergies No Known Allergies Allergy (Verified 06/04/25 14:19) HPI HPI Colonoscopy Screening: Details: 49-year-old female here for preprocedural meeting to discuss a screening colonoscopy. She is referred by Maddy Dunne. PMX History of breast cancer Constipation TMJ * SURGICAL HISTORY Liposuction Abdominoplasty Bilateral breast implants Cervical polypectomy Breast lumpectomy * ALLERGIES: NKDA * Interview MasterTECH LABS: None TODAY'S VISIT This is her first colonoscopy, she was to have one earlier but then was dx'ed with breast cancer. Also she tried to prep and failed to clear because of her constipation so we discussed utilizing Dulcolax 3 days prior and then Suprep on the day of prepping to ensure complete clearance. We will also get a thyroid to make sure this isn't part of her constipation issue. She suffers CIC and bloating, he manages it with Benefiber and miralax, bloating is mostly with beans. She has an upcoming barium swallow as she will occasionally choke on her own saliva, not solid foods. We have a long time discussing constipation management and bloating. I let her know that multiple symptoms can contribute and she notices that re fried veins are 1 of the worst for her and Beano is insufficient and that is relief. We did discuss using [id number]-[id number] digestive enzymes but she decides in the end that she would like a trial of Creon since her insurance is usually pretty good about covering these things. She has noted some relief in the bloating since she was put on estrogen blockade therapy so she wonders if hormones could be a contributing factor. She has had trouble waking up during anesthesia in the past, no other problems. She denies any cardiac or respiratory problems. No ID problems. Her father had colon polyps. She has questions about screening for hepatitis-C and I advise her that while I totally approve of screening I am uncertain how insurance covers this so 1st I think we should get a Chem panel and see if she has any transaminitis. She really does not have any risk factors for blood to blood transmission as I reviewed these thoroughly with her. Return office visit in 6 weeks [facility] Medical History Annual physical exam Surgical History History of cervical biopsy H/O liposuction H/O abdominoplasty Hx of breast implants, bilateral H/O cervical polypectomy H/O lumpectomy Family History Father Prostate cancer Other Diabetes Hypertension Osteoporosis Social History Housing: House Patient Tobacco Use Status: Never used Tobacco e-Cigarette/Vaping Use: Never Used Second Hand Smoke Exposure: No service: No Current occupational status: employed Current occupational exposures/hazards: No Cognitive needs: No Hearing needs: No Vision needs: No Review of Systems Const Denies fatigue, Denies fever(s), Denies night sweats, Denies poor appetite and Denies weight loss ENT Reports Normal hearing present, Denies dental pain, Denies dysphagia, Denies hearing loss, Denies mouth pain, Denies odynophagia, Denies throat swelling, Denies tongue swelling and Reports other (Dentition adequate) Card Reports no additional complaints Resp Reports no additional complaints GI Details: Denies abdominal pain, Denies melena, Reports bloating, Denies hematochezia, Reports constipation, Denies GI cramping, Denies dysphagia, Denies excessive flatus, Denies early satiety, Denies heartburn, Denies diarrhea, Denies nausea, Denies odynophagia, Denies vomiting and Denies hematemesis Skin/Breast Denies pruritus, Denies lesions, Denies rash and Denies jaundice Neuro Reports Normal hearing present and Denies Abnormal speech present Endo Denies fatigue Aller/Immun Denies throat swelling and Denies tongue swelling Physical Exam Vital Signs: BMI result Body Mass Index 28.3 Const General: cooperative, no acute distress, well developed and well groomed Nutritional Appearance: well nourished and obese centrally obese Orientation/consciousness: oriented to person, oriented to place and oriented to time Limitations: No language barrier HEENT Head: Yes normocephalic and Yes atraumatic Eyes General: appearance normal, both eyes and all related structures Pupils: Equal, round and reactive pupils present Neck Neck: Yes normal visual inspection and Yes no lymphadenopathy Thyroid: Thyroid normal Resp Effort & Inspection: normal respiratory effort and able to speak in complete sentences Auscultation: clear to auscultation bilaterally Cardio Rate: regular rate Rhythm: regular rhythm Heart sounds: Normal, physiologic split S2 sound present Peripheral pulses: radial pulses present and posterior tibial pulses present GI Inspection: No distended, No Abdominal panniculus present and Yes obesity Palpation (GI): Soft to palpation, nontender, no guarding, not rigid and No hepatosplenomegaly present Percussion: Yes normal to percussion Auscultation: normal bowel sounds Rectal Exam - Female: deferred Skin General skin exam: no rashes or lesions noted, turgor normal, skin not dry, no jaundice, No spider nevi and no striae Rashes: no rashes Nails: normal Neuro General: oriented to person, oriented to place and oriented to time Cranial nerves: Yes Equal, round and reactive pupils present and Yes Normal hearing present Speech: No Abnormal speech present Extrem General: Yes normal to inspection, No clubbing, No cyanosis and No edema Psych Appearance: grossly normal and well kempt Mental Status: mental status grossly normal Speech and movement: Normal speech and movement present Affect: normal affect Attitude: cooperative Thought process: Normal thought process present and not confabulating Thought content: Normal thought content present Insight: Good insight present (Psych) Judgement: Good judgement present (Psych) Assessment & Plan Assessment & Plan (1) Pre-op examination: Code(s): Z01.818 - Encounter for other preprocedural examination Category: Medical (2) Constipation: Code(s): K59.00 - Constipation, unspecified Category: Medical (3) Abdominal bloating: Code(s): R14.0 - Abdominal distension (gaseous) Category: Medical Plan This is her first colonoscopy, she was to have one earlier but then was dx'ed with breast cancer. Also she tried to prep and failed to clear because of her constipation so we discussed utilizing Dulcolax 3 days prior and then Suprep on the day of prepping to ensure complete clearance. We will also get a thyroid to make sure this isn't part of her constipation issue. She suffers CIC and bloating, he manages it with Benefiber and miralax, bloating is mostly with beans. She has an upcoming barium swallow as she will occasionally choke on her own saliva, not solid foods. We have a long time discussing constipation management and bloating. I let her know that multiple symptoms can contribute and she notices that re fried veins are 1 of the worst for her and Beano is insufficient and that is relief. We did discuss using twku-jpl-rkkneat digestive enzymes but she decides in the end that she would like a trial of Creon since her insurance is usually pretty good about covering these things. She has noted some relief in the bloating since she was put on estrogen blockade therapy so she wonders if hormones could be a contributing factor. She has had trouble waking up during anesthesia in the past, no other problems. She denies any cardiac or respiratory problems. No ID problems. Her father had colon polyps. She has questions about screening for hepatitis-C and I advise her that while I totally approve of screening I am uncertain how insurance covers this so 1st I think we should get a Chem panel and see if she has any transaminitis. She really does not have any risk factors for blood to blood transmission as I reviewed these thoroughly with her. Return office visit in 6 weeks Orders: Orders Comprehensive Met. Panel Today Z01.818 - Encounter for other preprocedural examination Complete Blood Count Auto Diff Today Z01.818 - Encounter for other preprocedural examination Colonoscopy - GI Use Only Today Z01.818 - Encounter for other preprocedural examination TSH reflex Free T4 Today K59.00 - Constipation, unspecified Medications: New peg 3350-electrolytes 236-22.74-6.74 -5.86 gram (Golytely) until fecal effluent is clear; do not exceed a total volume of 2,000 mL 240 mL PO Q10M 4,000 mL 0RF 1 day Z12.11 - Encounter for screening for malignant neoplasm of colon bisacodyl (Dulcolax (bisacodyl)) 10 mg (2 x 5 mg) PO BEDTIME 2 days 4 tabs 0RF bisacodyl (Dulcolax (bisacodyl)) 10 mg (2 x 5 mg) PO BEDTIME 10 tabs 0RF 2 days acurur-twzgtduc-ogthcdh 3,000-9,500- 15,000 unit (Creon) do not exceed 10,000 unit/kg lipase per 24 hrs 2 caps PO BID 120 caps 6RF 30 days K59.04 - Chronic idiopathic constipation Coding Level of Care Code New Pt Level 3 (71881) Diagnoses Pre-op examination Z01.818 Constipation K59.00 Abdominal bloating R14.0
[2025-06-04 14:22] VITALS: BMI 28.3
--- OUTSIDE RECORDS SUMMARY | 2025-06-04 14:31 | XMS_ITS | Continuity of Care Document ---
Author Name [facility] Organization [facility] Care Team Providers Care Tube Turner Name Role Phone [facility] Unavailable Unavailable Medications Combined list of outpatient medications from Department of Defense and Veterans Affairs facilities.Medications provided include 1) outpatient medications from the last 15 months, and 2) patient-reported medications. Medication Details Route Status Patient Instructions Prescription Expires Prescription Number Last Dispense Date Ordering Provider Order Date Order Qty Source NITROFURANT OIN MONO-MACRO (NITROFURAN TOIN MONOHYD/M-C RYST), 100 MG, CAPSULE, ORAL, ALVOGEN INC, 100 ea. BOTTLE Active [id number] 2023 14 Pharmac y Data Transac tion Service Facilit y PHENAZOPYRI DINE HCL (phenazopyr idine HCl), 200 MG, TABLET, ORAL, CORY LABORATO, 100 ea. BOTTLE Active [id number] 4 2023 9 Pharmac y Data Transac tion Service Facilit y Procedures Combined list of: 1) Procedures from Department of Veterans Affairs facilities going back up to thelast 18 months, not all [place] non-surgical procedures are included; 2) All procedures from the Department of Defense facilities. Procedure Procedure Type Code Date Perfomer Comments Kristel e THERAPEUTIC, PROPHYLACTIC, O R DIAGNOSTIC INJECTION (SPECIFY SUBSTANCE OR DRUG); SUBCUTANEOUS OR INTRAMUSCULAR 03/21/2022 [facility] Social History Combined list of available smoking, tobacco, and other social history from Department of Defense and Veterans Affairs facilities. Social History Type Response Date Comment Tanyac e This section is an empty social history section. [facility]
--- OUTSIDE RECORDS SUMMARY | 2025-06-04 14:56 | XMS_ITS | Patient Health Record ---
Author Organization [facility] [employer] Address [address] [place] [address] Care Team Providers Care Master Sheet Clerk Name Role Phone EscobarCari bradley Unavailable [phone] ALLERGIES No Known Allergies REASON FOR REFERRAL [...] a day for 90 day(s) 06/02/2023 Active PROBLEMS Problem Type ICD Code Onset Dates Problem Status W/U Status Risk SNOMED Code Notes Problem Irregular menses (N92.6) Active confirmed 38292600 Problem Perimenopausal symptoms (N95.1) Active confirmed 297461612 PLAN OF TREATMENT Pending Test Test Name Order Date TISSUE PATHOLOGY, GROSS ONLY 02/21/2023 Insurance Providers Payer Name Payer Address Payer Phone Subscriber Number Group Number Insured Name Patient Relationship to Insured Coverage Start Date Coverage End Date [place] [address] [address] [place] [address] [phone] [id number] Chelle Ramesh Self - patient is the insured MEDICAL (GENERAL) HISTORY Surgical History Surgery Date(Month/Year) B/l ear tubes B/l breast reduction and implants (salin e), abdominoplasty 2004 B/l implant replacement (encapsulation) 2004
--- OUTSIDE RECORDS SUMMARY | 2025-06-04 14:56 | XMS_ITS | Clinical Summary ---
Author Organization [employer] [facility] ity Address [address] [place] [address] Care Team Providers Care Stakeholder Manager Name Role Phone Unavailable Primary Care [...] series) 1994 Colorectal Cancer Screening: Colonoscopy 05/10/2024 HIV Screening 05/10/2024 Hepatitis C Screening 05/10/2024 Social Influencers of Health Screening 05/10/2024 COVID-19 Vaccine ( - 2023-2 5 season) 2024 Depression Screening 10/09/2024 Influenza Vaccine (#1) 2025 Cervical Cancer Screening: [...] Case Results Patient Name: COURTNEY VENEGAS MR#: [id number] Collected Date: 05/22/2024 Reported Date: 05/29/2024 Specimen #[id number] Final Diagnosis HPV request without Cytologic interpretation. [...] HPV nucleic acid amplification assay manufactured by [employer] and performed on the [employer] System was used for the qualitative detection [...] liquid based specimens is performed by the [employer] [facility] [facility] unless otherwise stated. Test Performed by: [address] [address] Carmenza Rodriguez M.D., Director HISTORICAL TESTING LAB RESULTING AGENCY 05/22/2024 Vanessa Rizo MD LAB CYTOLOGY ORDERABLES Final Re sult HISTORICAL TESTING LAB RESULTING AGENCY from Last 3 Months or Most Recently Relevant to Health Maintenance
--- OUTSIDE RECORDS SUMMARY | 2025-06-04 14:57 | XMS_ITS | Patient Health Record ---
Author Organization [facility] Address [address] [address] Care Team Providers Care Cleaner Assistant Name Role Phone George Hui MD Unavailable [phone] Allergies No Known Allergies Reason For Referral No Information Medications Medication SIG (Take, Route, Frequency, Duration) Notes Start Date End Date Status Hydrocortisone (Perianal) 2.5 % Cream 1 application Externally Twice a day; Duration: 14 days 07/19/2022 Active Clenpiq 10-3.5-12 MG-GM -GM/160ML Solution as directed Orally as directed; Duration: 1 days 07/19/2022 Active Progesterone 100 MG Capsule as directed Orally 08/2022 Active Pantoprazole Sodium 40 MG Tablet Delayed Release 1 tablet Orally Once a day; Duration: 90 days 07/19/2022 Active Immunizations Vaccine Route Administration Date Status Comme nts COVID-19 Pfizer 30mcg/0.3 mL dose Unknown 07/19/2021 Ad ministered Social History Tobacco Use: Social History Observation Description Date Details (start date - stop date) Never Smoker NA - NA Social History Drugs/Alcohol(Archived) Social Info Question Answer Notes Alcohol Screen (Audit-C) Did you have a drink containing alcohol in the past year? No Points 0 Interpretation Negative Drugs Have you used drugs other than those for medical reasons in the past 12 months? No Caffeine Intake: none Tobacco Use: Social Info Question Answer Notes Tobacco Use/Smoking (Archived) Are you a? nonsmoker Additional Findings: Tobacco Non-User Current no n-smoker Problems Problem Type SNOMED Code ICD Code Onset Dates Problem Status W/U Status Risk Notes Problem Constipation (37566353) Constipation (K59.00) Active confirmed Plan Of Treatment Future Test Test Name Order Date Colonoscopy 07/26/2022 EGD 07/26/2022 Insurance Providers Payer Name Payer Address Payer Phone Subscriber Number Group Number Insured Name Patient Relationship to Insured Coverage Start Date Coverage End Date [facility] [address] [place] [phone] [id number] Chelle Ramesh Self - patient is the insured Medical (General) History Surgical History Surgery Date(Month/Year) Ear Tubes Tummy Tuck Breast Lift
--- OUTSIDE RECORDS SUMMARY | 2025-06-04 14:57 | XMS_ITS | Clinical Summary ---
Author Organization [facility] Address [address] [place] [address] Care Team Providers Care Dry Cell Sealer Name Role Phone Unavailable Primary Care Provider [...]
== END 2025-06-04 15:14 | disposition home or self-care (01) ==
LOC: HO.HGI 14:01
PROVIDERS: Visit Provider Nurse Practitioner
DX: Z01.818 Encounter for other preprocedural examination (principal); Z12.11 Encounter for screening for malignant neoplasm of colon; K59.00 Constipation, unspecified; R14.0 Abdominal distension (gaseous)
CPT/HCPCS: S0285

== ENCOUNTER 2025-06-04 14:00 | Outpatient (REF) | payer OTHER, SELFPAY ==
[2025-06-04 15:38] LABS: MANUAL DIFF FLAG NO
[2025-06-04 16:09] LABS: Hematocrit 40.5 % (37.0-47.0); Hemoglobin 13.3 g/dl (12.0-16.0); Imm Gran Abs Auto 0.02 X10*3/uL (0.00-0.03); Imm Gran Pct Auto 0.3 % (0.0-0.4); Lymphocytes Absolute Auto 1.8 X10*3/uL (1.2-4.9); Mean Corpuscular HGB Conc 32.8 g/dl (31.0-35.0); Mean Corpuscular Hemoglobin 30.0 pg (27.0-33.0); Mean Corpuscular Volume 91.4 fL (80.0-98.0); NRBC Abs Auto 0.000 X10*3/uL (0.0-0.012); NRBC Pct Auto 0.0 /100WBC (0.0-0.2); Platelet Count 255 X10*3/uL (160-400); Red Blood Count 4.43 X10*6/uL (4.20-5.50); White Blood Count 5.9 X10*3/uL (4.8-10.8)
[2025-06-04 16:57] LABS: Alanine Aminotransferase 27 U/L (0-31); Albumin Level 4.9 g/dL (3.5-5.0); Alkaline Phosphatase 109 U/L (39-117); Anion Gap 13 (12-20); Aspartate Amino Transferase 26 U/L (5-31); Blood Urea Nitrogen 10 mg/dL (9-16); Calcium 9.7 mg/dL (8.4-10.2); Carbon Dioxide 27 mmol/L (22-29); Chloride 103 mmol/L (96-108); Estimated Glomerular Filt Rate > 60; Potassium 3.7 mmol/L (3.3-5.1); Sodium 139 mmol/L (135-145); Total Protein 7.3 g/dL (6.5-8.0)
== END 2025-06-04 14:01 | disposition home or self-care (01) ==
LOC: HO.LAB 14:00
PROVIDERS: Visit Provider Nurse Practitioner
DX: Z01.818 Encounter for other preprocedural examination (principal); Z12.11 Encounter for screening for malignant neoplasm of colon; K59.00 Constipation, unspecified; R14.0 Abdominal distension (gaseous)
CPT/HCPCS: 36415; 80053; 84443; 85025

== ENCOUNTER 2025-06-25 09:28 | Outpatient (AMB) | payer OTHER, SELFPAY ==
--- OUTSIDE RECORDS SUMMARY | 2024-01-24 06:30 | XMS_ITS ---
Author Organization [facility] Address [address] [place] [address] Care Team Providers Care Solar Designer Name Role Phone Cari Escobar Unavailable [phone] REASON FOR VISIT Well Woman/Yearly/Annual Encounters Encounter Location Date Provider Diagnosis [facility] [address] [place] [address] [address] [place] [address] 01/24/2024 Cari Escobar PLAN OF TREATMENT No Information
[2025-06-25 09:29] VITALS: BP 118/66; PULSE 72; O2SAT 98; BMI 28.4
--- NOTE | 2025-06-25 09:29 | A.OFFPC_ITS ---
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 Required: No Accompanied by: Self / Same As Patient Allergies No Known Allergies Allergy (Verified 06/25/25 09:37) Medication List - Last Reconciled 06/25/25 by Maddy Dunne PA-C acetaminophen ER 650 mg PO Q8H bisacodyl (Dulcolax (bisacodyl)) 10 mg (2 x 5 mg) PO BEDTIME 2 days ibuprofen mg PO 3XD letrozole mg PO DAILY levocetirizine 5 mg PO DAILY gpwdaw-rvozjpex-hshwpar 3,000-9,500- 15,000 unit (Creon) 2 caps PO BID 30 days peg 3350-electrolytes 236-22.74-6.74 -5.86 gram (Golytely) 240 mL PO Q10M 1 day tretinoin 0.025% appl topical DAILY urea 40% appl topical Tobacco use date assessed: 03/17/25 Dental Screening Dental Screen Date: 12/20/24 Did you have a dental visit in the last 12 months?: Yes Did you have a dental problem in the last 6 months where you did not have access to dental care?: No Was dental information given to patient?: Patient has dentist HPI 3 mo f/u HPI Details 49-year-old female past medical history of breast cancer last seen 04/02 coming in for follow up Presenting with management of cording in the arm and breast, bursitis of the hip, trigger finger, temporomandibular joint disorder, palpitations, and ear wax buildup. The patient reports ongoing physical therapy and occupational therapy for cording, which has recurred and is painful. Insurance issues have delayed further occupational therapy approval. The patient experiences trigger finger in the middle finger, which is managed with a splint. Stressful situations exacerbate the condition, causing the finger to lock painfully. Temporomandibular joint disorder (TMJ) patient has tried muscle relaxants without significant relief and has switched dentists for better management. The new dentist is addressing the issue, and improvement is noted. Palpitations Occur once or twice a month, lasting 15-30 seconds. The patient has a history of palpitations and tachycardia, previously managed by avoiding caffeine. [facility] Medical History Annual physical exam Surgical History History of cervical biopsy H/O liposuction H/O abdominoplasty Hx of breast implants, bilateral H/O cervical polypectomy H/O lumpectomy Family History Father Prostate cancer Other Diabetes Hypertension Osteoporosis Social History Housing: House Patient Tobacco Use Status: Never used Tobacco e-Cigarette/Vaping Use: Never Used Second Hand Smoke Exposure: No service: No Current occupational status: employed Current occupational exposures/hazards: No Cognitive needs: No Hearing needs: No Vision needs: No Questionnaire Thrive Questionnaire Date Thrive assessed: 12/20/24 I am a: Patient What is your living situation today?: I have a steady place to live Within the past 12 months, did the food you bought not last and you didn't have the money to get more?: Never true Within the past 12 months, did you worry whether your food would run out before you got money to buy more?: Never true Do you have trouble paying for medicines?: No Do you have trouble getting transportation to medical appointments?: No Do you have trouble paying your heating and electricity bill?: No Do you have trouble taking care of your child, family member or friend?: No Do you have trouble with day-to-day activities such as bathing, preparing meals, shopping, managing finances, etc.?: No Are you currently unemployed and looking for a job?: Yes Are you interested in more education?: Yes Please select the resources that you would like help with: Job search/training THRIVE Score: 0 LORRAINE-7 AMB Questionnaire LORRAINE-7 Date LORRAINE - 7 assessed: 12/20/24 Source: Developed by Drs. Bruce Jamison, Gladys Mcintosh, Hernan Larkin and colleagues, with an educational margi from [employer]. Review of Systems Const Denies body aches, Denies chills, Denies fever(s), Denies headache(s) and Denies poor appetite Eyes Reports no additional complaints ENT Denies dizziness and Denies headache(s) Card Denies chest pain, Denies syncope, Denies edema, Reports irregular heart rhythm (Occasionally and without symptoms), Denies lightheadedness and Denies dyspnea Resp Denies cough and Denies dyspnea GI Denies nausea and Denies vomiting Reports no additional complaints Musc Reports as per HPI and Denies abnormal gait Skin/Breast Reports system reviewed and no additional complaints, except as documented Neuro Denies abnormal gait, Denies dizziness, Denies syncope and Denies headache(s) Psych Reports no additional complaints Physical exam (Primary Care) Vital Signs: Last Vital Signs Pulse 72 06/25/25 09:29 BP 118/66 06/25/25 09:29 Pulse Ox 98 06/25/25 09:29 Oxygen Delivery Method Room Air 06/25/25 09:29 BMI result Body Mass Index 28.4 Tobacco/Smoking Status: Tobacco use Status Tobacco use date assessed 03/17/25 06/25/25 09:37 Patient Tobacco Use Status Never used Tobacco 06/25/25 09:37 e-Cigarette/Vaping Use Never Used 06/25/25 09:37 Thrive Assessment: Date of Thrive Assessment Date Thrive assessed 12/20/24 06/25/25 09:37 Const General: cooperative, healthy appearing, comfortable and no acute distress Orientation/consciousness: patient oriented x3 HENMT Head: Yes normocephalic Ears: hearing grossly normal bilaterally and Abnormal EAC present cerumen impaction bilateral General nose exam: Normal external nose present Eyes General: appearance normal, both eyes and all related structures Conjunctivae: conjunctivae normal Neck Neck: Yes full ROM and Yes no lymphadenopathy Resp Effort & Inspection: normal respiratory effort Auscultation: clear to auscultation bilaterally, no crackles, no rales, no rhonchi and no wheezes Cardio Rate: regular rate Rhythm: regular rhythm Skin General skin exam: no rashes or lesions noted Neuro General: patient oriented x3 Gait exam (Neuro): Normal gait present Extrem Other: Pain to palpation over right 3rd digit General: Yes normal to inspection, Yes full ROM and No edema Psych Affect: normal affect Attitude: cooperative Insight: Good insight present (Psych) Judgement: Good judgement present (Psych) Coding Level of Care Code Est Pt Level 4 (16570) Diagnoses Constipation K59.00 Left knee pain M25.562 Bilateral hip pain M25.551; M25.552 Trigger finger, right middle finger M65.331 Palpitations R00.2 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 Continue on Benefiber. Reviewed 3 rules of constipation; stay well hydrated, exercise as tolerated and increase fiber intake (2) Left knee pain: Code(s): M25.562 - Pain in left knee Category: Medical Plan: X-ray did not reveal any significant changes. She is requesting a referral to Orthopedics as she has done physical therapy without benefit. (3) Bilateral hip pain: Code(s): M25.551 - Pain in right hip; M25.552 - Pain in left hip Category: Medical Plan: Physical therapy has been beneficial for hip bursitis, and the patient will continue sessions as insurance allows. A referral to orthopedics will be made for further evaluation and management. She continues to have bilateral hip pain despite physical therapy. (4) Trigger finger, right middle finger: Code(s): M65.331 - Trigger finger, right middle finger Category: Medical Plan: The patient will continue using a splint for trigger finger management. A referral to orthopedics for potential steroid injections or surgical release will be made. (5) Palpitations: Code(s): R00.2 - Palpitations Category: Medical Plan: A Holter monitor will be ordered to evaluate the palpitations, although infrequent occurrences may limit findings. The patient is advised to monitor for any exacerbating factors such as caffeine or stress. (6) Axillary web syndrome: Code(s): L76.82 - Other postprocedural complications of skin and subcutaneous tissue; L90.5 - Scar conditions and fibrosis of skin Category: Medical Plan: The patient will continue with physical therapy and occupational therapy for cording management. Insurance approval for additional occupational therapy sessions is pending. Supporting evidence will be provided to facilitate approval. (7) Right knee pain: Code(s): M25.561 - Pain in right knee Category: Medical Plan: Patient has been undergoing physical therapy for bilateral knee pain without good benefit. She will continue with heat, ice, Tylenol and ibuprofen as needed. She is requesting referral to Orthopedics which has been placed today (8) Cerumen impaction: Code(s): H61.20 - Impacted cerumen, unspecified ear Category: Medical Plan: Recommend the use of Debrox and ear flushing at next visit Plan This note was constructed using voice recognition software. While every effort has been made to ensure accuracy and automotive parts specialist, still areas may have been included sometimes these areas may affect the content or meeting of the given symptoms. Total time spent caring for the patient today was 20 minutes. This includes time spent before the visit reviewing the chart, time spent during the visit, and time spent after the visit and documentation. Patient was informed and verbally consented to the use of an ambient scribe for clinic note documentation during this visit. Orders: Orders XR knee RT 2V Today M25.561 - Pain in right knee ECG 5 day holter monitor Today R00.2 - Palpitations Referrals Orthopedics Referral M25.551 - Pain in right hip, M25.552 - Pain in left hip, M25.561 - Pain in right knee, M25.562 - Pain in left knee, M65.331 - Trigger finger, right middle finger Medications: New carbamide peroxide 6.5% (Debrox) 5 drps otic (ear) right DAILY 15 mL 0RF 4 days
--- OUTSIDE RECORDS SUMMARY | 2025-06-25 11:10 | XMS_ITS | Clinical Summary ---
Author Organization [employer] [facility] Address [address] [place] [address] Care Team Providers Care Staying Machine Operator Name Role Phone Unavailable Primary Care Provider [...]
--- OUTSIDE RECORDS SUMMARY | 2025-06-25 11:10 | XMS_ITS | Patient Health Record ---
Author Organization [facility] Address [address] [place] [address] Care Team Providers Care Head Men'S Tennis Coach Name Role Phone George Hui MD Unavailable [phone] Allergies No Known Allergies Reason For Referral [...] Status W/U Status Risk Notes Problem Constipation (47071241) Constipation (K59.00) Active confirmed Plan Of Treatment Future Test Test Name Order Date Colonoscopy 07/26/2022 EGD 07/26/2022 Insurance Providers Payer Name Payer Address Payer Phone Subscriber Number Group Number Insured Name Patient Relationship to Insured Coverage Start Date Coverage End Date [facility] [address] [place] [address] [id number] Chelle Ramesh Self - patient is the insured Medical (General) History Surgical History Surgery Date(Month/Year) Breast Lift Tummy Tuck Ear Tubes
--- OUTSIDE RECORDS SUMMARY | 2025-06-25 11:10 | XMS_ITS | Clinical Summary ---
Author Organization [employer] [facility] Address [address] [place] [address] Care Team Providers Care Options Trader Name Role Phone Unavailable Primary Care Provider [...] 05/10/2024 Social Influencers of Health Screening 05/10/2024 Depression Screening 10/09/2024 COVID-19 Vaccine ( - 2023-2 5 season) 2025 Influenza Vaccine (#1) 2025 Cervical Cancer Screening: [...] Case Results Patient Name: COURTNEY VENEGAS MR#: [id number] Collected Date: 05/22/2024 Reported Date: 05/29/2024 Specimen #[id number] Final Diagnosis HPV request without Cytologic interpretation. [...] HPV nucleic acid amplification assay manufactured by [employer] and performed on the [employer] System was used for the qualitative detection [...] liquid based specimens is performed by the [employer] [facility] unless otherwise stated. Test Performed by: [address] [address] Carmenza Rodriguez M.D., Director HISTORICAL TESTING LAB RESULTING AGENCY 05/22/2024 Vanessa Rizo MD LAB CYTOLOGY ORDERABLES Final Re sult HISTORICAL TESTING LAB RESULTING AGENCY from Last 3 Months or Most Recently Relevant to Health Maintenance
--- OUTSIDE RECORDS SUMMARY | 2025-06-25 11:10 | XMS_ITS | Patient Health Record ---
Author Organization [employer] [facility] [employer] [employer] Address [address] [place] [address] Care Team Providers Care Brick Maker Name Role Phone EscobarCari bradley Unavailable [phone] ALLERGIES No Known Allergies REASON FOR REFERRAL [...] Notes Problem Irregular menses (N92.6) Active confirmed [id number] Problem Perimenopausal symptoms (N95.1) Active confirmed [id number] PLAN OF TREATMENT Pending Test Test Name Order Date TISSUE PATHOLOGY, GROSS ONLY 02/21/2023 Insurance Providers Payer Name Payer Address Payer Phone Subscriber Number Group Number Insured Name Patient Relationship to Insured Coverage Start Date Coverage End Date [place] [address] [address] [place] [address] [phone] [id number] Chelle Ramesh Self - patient is the insured MEDICAL (GENERAL) HISTORY Surgical History Surgery Date(Month/Year) B/l ear tubes B/l breast reduction and implants (salin e), abdominoplasty 2004 B/l implant replacement (encapsulation) 2004
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
== END 2025-06-25 10:19 | disposition home or self-care (01) ==
LOC: HO.HMCH 09:29
DX: K59.00 Constipation, unspecified (principal); M25.562 Pain in left knee; M25.551 Pain in right hip; M25.552 Pain in left hip; M65.331 Trigger finger, right middle finger; R00.2 Palpitations; L76.82 Other postprocedural complications of skin and subcutaneous tissue; L90.5 Scar conditions and fibrosis of skin; M25.561 Pain in right knee; H61.21 Impacted cerumen, right ear

== ENCOUNTER → 2025-06-25 09:28 | Outpatient (BNVA) | payer OTHER, SELFPAY | DX: K59.00 Constipation, unspecified (principal); M25.562 Pain in left knee; M25.551 Pain in right hip; M25.552 Pain in left hip; M65.331 Trigger finger, right middle finger; R00.2 Palpitations; L76.82 Other postprocedural complications of skin and subcutaneous tissue; L90.5 Scar conditions and fibrosis of skin; M25.561 Pain in right knee; H61.20 Impacted cerumen, unspecified ear | CPT/HCPCS: 99212 ==

== ENCOUNTER → 2025-08-06 15:09 | Outpatient (REF) | payer OTHER, SELFPAY ==
--- NOTE | 2025-08-06 15:32 | HM_ITS ---
Conclusion: 1. Patient was monitored for total period of 4 days 2. Baseline was normal sinus rhythm with average heart of 79 beats per minute 3. No significant pauses noted 4. 1 7 beat run of wide complex rhythm consistent with nonsustained VT at 136 beats per minute 5. 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
--- OUTSIDE RECORDS SUMMARY | 2025-08-06 19:36 | XMS_ITS | Patient Health Record ---
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 Exercise: 1-2/wk biking, yoga Alcohol: socially Denies cigarrete or drug use Problems Problem Type SNOMED Code ICD Code Onset Dates Problem Status W/U Status Risk Notes Problem Anxiety (90960864) Anxiety (F41.9) Active confirmed Problem Menstrual disorder (886949606) Irregular menses (N92.6) Active confirmed Problem History of breas t implant (Z98.82) Active confirmed Problem Right lower quadrant pain (718992603) Right lower quadrant abdominal pain (R10.31) Active confirmed Problem Menopause (528258024) Perimenopausal symptoms (N95.1) Active confirmed Problem Voice hoarseness (80351739) Hoarseness of voice (R49.0) Active confirmed Plan Of Treatment Pending Test Test Name Order Date Ultrasound : Breasts, bilateral 03/11/20 Diagnostic Mammogram 03/11/2021 Medical (General) History Medical History History ICD Code Hormonal Therapy Surgical History Surgery Date(Month/Year) B/l implant replacement (encapsulation) 2004 Adriana Fam B/l breast reduction and implants (salin e), abdominoplasty 2004 breast lift B/l ear tubes Hospitalization History Reason Date(Month/Year) Child 02/23/1999, 1
--- OUTSIDE RECORDS SUMMARY | 2025-08-06 19:36 | XMS_ITS | Patient Health Record ---
Author Organization [facility] Address [address] [place] [address] Care Team Providers Care Interlibrary Loan Services Librarian Name Role Phone George Hui MD Unavailable [phone] Allergies No Known Allergies Reason For Referral [...] Status W/U Status Risk Notes Problem Constipation (37756532) Constipation (K59.00) Active confirmed Plan Of Treatment Future Test Test Name Order Date Colonoscopy 07/26/2022 EGD 07/26/2022 Insurance Providers Payer Name Payer Address Payer Phone Subscriber Number Group Number Insured Name Patient Relationship to Insured Coverage Start Date Coverage End Date [facility] [address] [place] [address] [id number] Chelle Ramesh Self - patient is the insured Medical (General) History Surgical History Surgery Date(Month/Year) Breast Lift Tummy Tuck Ear Tubes
--- OUTSIDE RECORDS SUMMARY | 2025-08-06 19:36 | XMS_ITS | Clinical Summary ---
Author Organization [employer] [facility] Address [address] [place] [address] Care Team Providers Care Mission Planner Name Role Phone Unavailable Primary Care Provider [...]
--- OUTSIDE RECORDS SUMMARY | 2025-08-06 19:36 | XMS_ITS | Clinical Summary ---
Author Organization [facility] it Address [address] [place] [address] Care Team Providers Care Consulting Business Developer Name Role Phone Unavailable Primary Care Provider [...] Last Done Comments Breast Cancer Screening 1975 Colorectal Cancer Screening: Colonoscopy 1975 DTaP,Tdap,and Td Vaccines (1 - Tdap) 1994 Hepatitis B Vaccines (1 of 3 - 19+ 3-dose series) 1994 HIV Screening 05/10/2024 Hepatitis C Screening 05/10/2024 Social Influencers of Health Screening 05/10/2024 Depression Screening 10/09/2024 COVID-19 Vaccine (1 - 2023-2 5 season) 2025 Influenza Vaccine (#1) 2025 Cervical Cancer Screening: P ap Smear 05/22/2027 05/22/2024 RSV Immunization Adult Patie nts (1 - 1-dose 75+ series) 2050 HIB Vaccines Aged Out No longer eligi [...] Case Results Patient Name: COURTNEY VENEGAS MR#: [id number] Collected Date: 05/22/2024 Reported Date: 05/29/2024 Specimen #[id number] Final Diagnosis HPV request without Cytologic interpretation. [...] HPV nucleic acid amplification assay manufactured by [employer] and performed on the [employer] System was used for the qualitative detection [...] screening: Interim clinical guidance, Gynecol Oncol. 2015 Feb, 136(2):178-82. Procedure/Adden dum Electronically Signed Out By System Interface Note: The Pap test is a screening test with an inherent false negative rate. Automated prescreening of all liquid based specimens is performed by the [employer] unless otherwise stated. Test Performed by: [place] [address] Carmenza Rodriguez M.D., Director HISTORICAL TESTING LAB RESULTING AGENCY 05/22/2024 us Vanessa Rizo MD LAB CYTOLOGY ORDERABLES Final Re sult HISTORICAL TESTING LAB RESULTING AGENCY from Last 3 Months or Most Recently Relevant to Health Maintenance
--- OUTSIDE RECORDS SUMMARY | 2025-08-06 19:36 | XMS_ITS | Patient Health Record ---
Author Organization [employer] [facility], Remote Assistant Address [address] [place] [address] Care Team Providers Care Food Service Attendant Name Role Phone EscobarCari bradley Unavailable [phone] ALLERGIES No Known Allergies REASON FOR REFERRAL [...] Notes Problem Irregular menses (N92.6) Active confirmed [id number] Problem Perimenopausal symptoms (N95.1) Active confirmed [id number] PLAN OF TREATMENT Pending Test Test Name Order Date TISSUE PATHOLOGY, GROSS ONLY 02/21/2023 Insurance Providers Payer Name Payer Address Payer Phone Subscriber Number Group Number Insured Name Patient Relationship to Insured Coverage Start Date Coverage End Date [facility] L[facility] [address] [place] [address] [phone] [id number] Chelle Ramesh Self - patient is the insured MEDICAL (GENERAL) HISTORY Surgical History Surgery Date(Month/Year) B/l ear tubes B/l breast reduction and implants (salin e), abdominoplasty 2004 B/l implant replacement (encapsulation) 2004
== END ==
LOC: HO.CARD 15:09
DX: R00.2 Palpitations (principal)
CPT/HCPCS: 93242

== ENCOUNTER → 2025-08-06 15:32 | Outpatient (BNV) | payer OTHER, SELFPAY | PROVIDERS: Visit Provider Internal Medicine Cardiovascular Disease | DX: I47.10 Supraventricular tachycardia, unspecified (principal) | CPT/HCPCS: 93244 ==

== ENCOUNTER 2025-08-20 14:34 | Outpatient (AMB) | payer OTHER, SELFPAY ==
[2025-08-20 14:37] VITALS: BMI 28.3
--- NOTE | 2025-08-20 14:37 | A.OFFVIS_ITS ---
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 Patient reports she was taking a cancer medication many years ago that caused her to h ave multiple trigger fingers. Patient is not taking any medication for it however she has been trying night splinting with some relief. She finds it also stays stock in a straight position . She reports previous procedure of the right thumb about 10 years ago. 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 Patient reports she was taking a cancer medication many years ago that caused her to have multiple trigger fingers. Patient is not taking any medication for it however she has been trying night splinting with some relief. Patient states that the right middle finger is the only 1 that has remained persistent in locking and catching in a flexed position She finds it also stays stock in a straight position . She reports previous procedure of the right thumb about 10 years ago. 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 Neuro: Normal sensation of the tips of all digits of the right hand at this time Vascular: Cap refill brisk Pain: No Tenderness to palpation of the A1 yumiko of right middle finger Pain associated with locking and catching of right middle finger ROM: There is visible and palpable locking and catching of the right middle finger in a flexed position Patient is able to flex and extend all other digits of the right hand fully and without difficulty Skin: No lacerations or abrasions. General: No ecchymosis, erythema, or evidence of infection. Psych: Appears grossly normal Affect normal Attitude cooperative Assessment & Plan Assessment & Plan (1) Trigger finger, right middle finger: Code(s): M65.331 - Trigger finger, right middle finger Category: Medical Plan 1. Right middle finger trigger finger Patient is educated about this condition Patient is educated about the typical treatment course At this time, patient states she would probably like to proceed with surgical intervention, however she would like to have a week or 2 to think about this prior to getting signed up Therefore, patient is educated about the surgery, is provided with an information sheet, and will follow-up in 1-2 weeks to discuss potential right middle finger trigger release Patient understands this and is amenable to this plan Follow-up at that point, sooner with any acute concerns Coding Level of Care Code New Pt Level 3 (88866) Diagnoses Trigger finger, right middle finger M65.331
--- OUTSIDE RECORDS SUMMARY | 2025-08-20 18:03 | XMS_ITS | Patient Health Record ---
Author Organization [facility] Address [address] [place] [address] Care Team Providers Care Quality Improvement Engineer Name Role Phone George Hui MD Unavailable [phone] Allergies No Known Allergies Reason For Referral [...] Status W/U Status Risk Notes Problem Constipation (46985670) Constipation (K59.00) Active confirmed Plan Of Treatment Future Test Test Name Order Date Colonoscopy 07/26/2022 EGD 07/26/2022 Insurance Providers Payer Name Payer Address Payer Phone Subscriber Number Group Number Insured Name Patient Relationship to Insured Coverage Start Date Coverage End Date [facility] [address] [place] [address] [id number] Chelle Ramesh Self - patient is the insured Medical (General) History Surgical History Surgery Date(Month/Year) Breast Lift Tummy Tuck Ear Tubes
--- OUTSIDE RECORDS SUMMARY | 2025-08-20 18:03 | XMS_ITS | Patient Health Record ---
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 Exercise: 1-2/wk biking, yoga Alcohol: socially Denies cigarrete or drug use Problems Problem Type SNOMED Code ICD Code Onset Dates Problem Status W/U Status Risk Notes Problem Anxiety (12204605) Anxiety (F41.9) Active confirmed Problem Menstrual disorder (072411465) Irregular menses (N92.6) Active confirmed Problem History of breas t implant (Z98.82) Active confirmed Problem Right lower quadrant pain (408711838) Right lower quadrant abdominal pain (R10.31) Active confirmed Problem Menopause (594202084) Perimenopausal symptoms (N95.1) Active confirmed Problem Voice hoarseness (60579660) Hoarseness of voice (R49.0) Active confirmed Plan Of Treatment Pending Test Test Name Order Date Ultrasound : Breasts, bilateral 03/11/20 Diagnostic Mammogram 03/11/2021 Medical (General) History Medical History History ICD Code Hormonal Therapy Surgical History Surgery Date(Month/Year) B/l implant replacement (encapsulation) 2004 [facility] B/l breast reduction and implants (salin e), abdominoplasty 2004 B/l ear tubes breast lift Hospitalization History Reason Date(Month/Year) Child 02/23/1999, 1
--- OUTSIDE RECORDS SUMMARY | 2025-08-20 18:03 | XMS_ITS | Patient Health Record ---
Author Organization [employer] [employer] Address [address] [place] [address] Care Team Providers Care Reserve Operator Name Role Phone EscobarCari bradley Unavailable [phone] ALLERGIES No Known Allergies REASON FOR REFERRAL [...] Notes Problem Irregular menses (N92.6) Active confirmed 23290262 Problem Perimenopausal symptoms (N95.1) Active confirmed [id number] PLAN OF TREATMENT Pending Test Test Name Order Date TISSUE PATHOLOGY, GROSS ONLY 02/21/2023 Insurance Providers Payer Name Payer Address Payer Phone Subscriber Number Group Number Insured Name Patient Relationship to Insured Coverage Start Date Coverage End Date [place] [address] [address] [place] [address] [phone] [id number] Chelle Ramesh Self - patient is the insured MEDICAL (GENERAL) HISTORY Surgical History Surgery Date(Month/Year) B/l ear tubes B/l breast reduction and implants (salin e), abdominoplasty 2004 B/l implant replacement (encapsulation) 2004
--- OUTSIDE RECORDS SUMMARY | 2025-08-20 18:04 | XMS_ITS | Clinical Summary ---
Author Organization [facility] [facility] Address [address] [place] [address] Care Team Providers Care Tool Honing Machine Set Up Operator Name Role Phone Unavailable Primary Care [...]
== END 2025-08-20 15:16 | disposition home or self-care (01) ==
LOC: HO.HOS 14:35
DX: M65.331 Trigger finger, right middle finger (principal)
CPT/HCPCS: 99204

== ENCOUNTER → 2025-08-20 14:34 | Outpatient (BNVA) | payer OTHER, SELFPAY | DX: M65.331 Trigger finger, right middle finger (principal) | CPT/HCPCS: 99202 ==

== ENCOUNTER 2025-08-26 11:23 | Outpatient (AMB) | payer OTHER, SELFPAY ==
--- NOTE | 2025-08-26 11:37 | MHC.OFFVIS ---
Vital Signs 08/26/25 11:50 Height 5 ft 2 in Weight 155 lb BMI 28.3 Intake Visit Reasons: OV-Discuss RT MF Trigger Release Intake Note: Chelle is a 49 year old right hand dominant female who presents today for Follow Up of her Right Middle Trigger Finger. At her last visit, 08/20/25, patient wished to have some time to think about the surgery. Patient would like to proceed with Right Middle Finger Trigger Release. Allergies No Known Allergies Allergy (Verified 08/26/25 11:40) HPI HPI OV-Discuss RT MF Trigger Release: Details: Chelle is a 49 year old right hand dominant female who presents today for Follow Up of her Right Middle Trigger Finger. At her last visit, 08/20/25, patient wished to have some time to think about the surgery. Patient would like to proceed with Right Middle Finger Trigger Release. No new medical diagnoses or medications since previous evaluation, patient states that she did speak with her oncologist about how long she will need to stop her letrozole for, and this would need to be for a week preoperatively in approximately 2 weeks postoperatively. No other acute complaints or concerns at this time. [facility] Medical History Annual physical exam Surgical History History of cervical biopsy H/O liposuction H/O abdominoplasty Hx of breast implants, bilateral H/O cervical polypectomy H/O lumpectomy Family History Father Prostate cancer Other Diabetes Hypertension Osteoporosis Social History (Updated 08/20/25 @ 14:58 by ELA Ann) Housing: House Alcohol intake: current Alcohol intake frequency: a few times a month Patient Tobacco Use Status: Never used Tobacco e-Cigarette/Vaping Use: Never Used Second Hand Smoke Exposure: No service: No Current occupational status: employed 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 Neuro: Normal sensation of the tips of all digits of the right hand at this time Vascular: Cap refill brisk Pain: No Tenderness to palpation of the A1 yumiko of right middle finger Pain associated with locking and catching of right middle finger ROM: There is visible and palpable locking and catching of the right middle finger in a flexed position Patient is able to flex and extend all other digits of the right hand fully and without difficulty Skin: No lacerations or abrasions. General: No ecchymosis, erythema, or evidence of infection. Psych: Appears grossly normal Affect normal Attitude cooperative Assessment & Plan Assessment & Plan (1) Trigger finger, right middle finger: Code(s): M65.331 - Trigger finger, right middle finger Category: Medical Plan 1. Right middle finger trigger finger I educated the patient about the condition. I discussed both operative and nonoperative treatment options. The patient would like to proceed with surgery. The risks and benefits of operative treatment were discussed with the patient and the patient wishes to proceed with surgery. These risks include, but are not limited to, risk of damage to blood vessels, nerves, tendons, infection, recurrence, incomplete relief of preoperative symptoms, persistent pain, possible need for further surgery, and the risks associated with regional blocks and/or anesthesia. Plan is to take the patient to the operating room at some point in the next few weeks for the following procedures: 1. Right middle finger trigger release under local All of the preoperative paperwork including the consent was discussed today. All of the patient's questions were answered in the clinic today. The patient understands that they will be in contact with our development technician to discuss scheduling their procedure. Hold letrozole for one-week prior to surgery, hold for 2 weeks after to allow for adequate healing Patient denies diabetes, blood thinners, asthma, heart issues, lung issues, kidney issues, or current smoking. Coding Level of Care Code Est Pt Level 4 (71264) Diagnoses Trigger finger, right middle finger M65.331
[2025-08-26 11:50] VITALS: BMI 28.3
--- OUTSIDE RECORDS SUMMARY | 2025-08-27 02:08 | XMS_ITS | Clinical Summary ---
Author Organization [employer] [facility] Address [address] [place] [address] Care Team Providers Care Maritime Guard Name Role Phone Unavailable Primary Care Provider [...]
--- OUTSIDE RECORDS SUMMARY | 2025-08-27 02:08 | XMS_ITS | Clinical Summary ---
Author Organization [facility] it Address [address] [place] [address] Care Team Providers Care Copier Repair Technician Name Role Phone Unavailable Primary Care Provider [...] Depression Screening 10/09/2024 COVID-19 Vaccine (1 - 2024-2 6 season) 2025 Influenza Vaccine (#1) 2025 Cervical [...] Case Results Patient Name: COURTNEY VENEGAS MR#: [id number] Collected Date: 05/22/2024 Reported Date: 05/29/2024 Specimen #[id number] Final Diagnosis HPV request without Cytologic interpretation. [...] HPV nucleic acid amplification assay manufactured by [employer] (formerly [employer]) and performed on the [employer] System was used for the qualitative detection [...] liquid based specimens is performed by the [employer] [facility] unless otherwise stated. Test Performed by: [place] [address] Carmenza Rodriguez M.D., Director HISTORICAL TESTING LAB RESULTING AGENCY 05/22/2024 us Vanessa Rizo MD LAB CYTOLOGY ORDERABLES Final Re sult HISTORICAL TESTING LAB RESULTING AGENCY from Last 3 Months or Most Recently Relevant to Health Maintenance
--- OUTSIDE RECORDS SUMMARY | 2025-08-27 02:08 | XMS_ITS | Patient Health Record ---
Author Organization [facility] Address [address] [place] [address] Care Team Providers Care Video Recorder Mechanic Name Role Phone George Hui MD Unavailable [phone] Allergies No Known Allergies Reason For Referral [...] Status W/U Status Risk Notes Problem Constipation (52021586) Constipation (K59.00) Active confirmed Plan Of Treatment Future Test Test Name Order Date Colonoscopy 07/26/2022 EGD 07/26/2022 Insurance Providers Payer Name Payer Address Payer Phone Subscriber Number Group Number Insured Name Patient Relationship to Insured Coverage Start Date Coverage End Date [facility] [address] [place] [address] [id number] Chelle Ramesh Self - patient is the insured Medical (General) History Surgical History Surgery Date(Month/Year) Breast Lift Tummy Tuck Ear Tubes
--- OUTSIDE RECORDS SUMMARY | 2025-08-27 02:09 | XMS_ITS | Patient Health Record ---
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 Exercise: 1-2/wk biking, yoga Alcohol: socially Denies cigarrete or drug use Problems Problem Type SNOMED Code ICD Code Onset Dates Problem Status W/U Status Risk Notes Problem Anxiety (36642504) Anxiety (F41.9) Active confirmed Problem Menstrual disorder (910214027) Irregular menses (N92.6) Active confirmed Problem History of breas t implant (Z98.82) Active confirmed Problem Right lower quadrant pain (572756878) Right lower quadrant abdominal pain (R10.31) Active confirmed Problem Menopause (748380484) Perimenopausal symptoms (N95.1) Active confirmed Problem Voice hoarseness (48721243) Hoarseness of voice (R49.0) Active confirmed Plan [...]
--- OUTSIDE RECORDS SUMMARY | 2025-08-27 02:09 | XMS_ITS | Patient Health Record ---
Author Organization [employer] Address [address] [place] [address] Care Team Providers Care Conveyor Feeder Name Role Phone EscobarCari bradley Unavailable [phone] ALLERGIES No Known Allergies REASON FOR REFERRAL [...] Notes Problem Irregular menses (N92.6) Active confirmed 55236259 Problem Perimenopausal symptoms (N95.1) Active confirmed [id number] PLAN OF TREATMENT Pending Test Test Name Order Date TISSUE PATHOLOGY, GROSS ONLY 02/21/2023 Insurance Providers Payer Name Payer Address Payer Phone Subscriber Number Group Number Insured Name Patient Relationship to Insured Coverage Start Date Coverage End Date [facility] L[facility] [address] [place] [address] [phone] [id number] Chelle Ramesh Self - patient is the insured MEDICAL (GENERAL) HISTORY Surgical History Surgery Date(Month/Year) B/l ear tubes B/l breast reduction and implants (salin e), abdominoplasty 2004 B/l implant replacement (encapsulation) 2004
== END 2025-08-26 12:08 | disposition home or self-care (01) ==
LOC: HO.HOS 11:25
DX: M65.331 Trigger finger, right middle finger (principal)
CPT/HCPCS: 99214

== ENCOUNTER → 2025-08-26 11:23 | Outpatient (BNVA) | payer OTHER, SELFPAY | DX: M65.331 Trigger finger, right middle finger (principal) | CPT/HCPCS: 99212 ==

== ENCOUNTER 2025-09-24 10:06 | Outpatient (AMB) | payer OTHER, SELFPAY ==
--- NOTE | 2025-09-24 10:10 | MHC.PC.OV ---
Vital Signs 09/24/25 10:11 Height 5 ft 2 in Weight 149 lb BMI 27.2 BP 132/72 Blood Pressure Location Lt brachial Position Sitting Pulse 72 Pulse Source Pulse Oximeter Temp 97.3 F Temp Source Temporal Artery Scan Pulse Oximetry (%) 98 Oxygen Delivery Method Room Air Intake Visit Reasons: 3 months Intake Note: Patient is here to follow up on Lymphedema, Axillary web syndrome. Ear cleaning request. Business Programmer Required: No Zoogler: Not Required per policy Accompanied by: Self / Same As Patient Allergies No Known Allergies Allergy (Verified 09/24/25 10:16) Medication List - Last Reconciled 09/24/25 by Maddy Dunne PA-C carbamide peroxide 6.5% (Debrox) 5 drps otic (ear) right DAILY 4 days ibuprofen mg PO 3XD letrozole mg PO DAILY levocetirizine 5 mg PO DAILY kxphwz-wwogjswt-cpuimyt (pork) 3,000-9,500- 15,000 unit (Creon) 2 caps PO BID 30 days peg 3350-electrolytes 236-22.74-6.74 -5.86 gram (Golytely) 240 mL PO Q10M 1 day tretinoin 0.025% appl topical DAILY urea 40% appl topical Tobacco use date assessed: 09/24/25 Dental Screening Dental Screen Date: 12/20/24 HPI 3 months HPI Details 49-year-old female with past medical history of breast cancer last seen 06/2025 coming in for follow up. At her last visit Holter monitor was ordered for palpitations. In review of the notes, patient was seen by Orthopedics 08/26/2025 for right middle trigger finger plan for surgical intervention. Patient was seen by [facility] 08/07/2025 continue on leuprolide every 3 months, anastrozole once daily for at least 5 years and return to clinic in 6 months. Her Holter monitor revealed normal sinus rhythm with a 1 episode of nonsustained VT referral was placed to cardiology. Presenting for follow-up on multiple health issues and preventative care. The patient underwent Holter monitoring which revealed one asymptomatic episode of non-sustained ventricular tachycardia lasting for seven beats at a rate of 136 bpm. She reports ongoing palpitations, which have become more frequent but less severe, and these symptomatic episodes were correlated with a normal rhythm on the monitor. She also endorses occasional dizziness but denies chest pain or shortness of breath. She has a cardiology appointment scheduled for October. In relation to her history of breast cancer, she is managed by a breast specialist and continues treatment with anastrozole and Luprolide injections every three months, with her next follow-up in approximately four months. She has lymphedema in her arm, for which her occupational therapist has prescribed a lymphatic drainage massage vest. The patient recently received COVID-19, pneumonia, influenza, and Tdap vaccinations, after which she experienced severe arm pain, chills, and a fever for approximately 12 hours. 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, 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 Current occupational exposures/hazards: No Cognitive needs: No Hearing needs: No Vision needs: No Questionnaire Thrive Questionnaire Date Thrive assessed: 12/20/24 I am a: Patient What is your living situation today?: I have a steady place to live Within the past 12 months, did the food you bought not last and you didn't have the money to get more?: Never true Within the past 12 months, did you worry whether your food would run out before you got money to buy more?: Never true Do you have trouble paying for medicines?: No Do you have trouble getting transportation to medical appointments?: No Do you have trouble paying your heating and electricity bill?: No Do you have trouble taking care of your child, family member or friend?: No Do you have trouble with day-to-day activities such as bathing, preparing meals, shopping, managing finances, etc.?: No Are you currently unemployed and looking for a job?: Yes Are you interested in more education?: Yes Please select the resources that you would like help with: Job search/training THRIVE Score: 0 LORRAINE-7 AMB Questionnaire LORRAINE-7 Date LORRAINE - 7 assessed: 12/20/24 Source: Developed by Drs. Bruce Jamison, Gladys Mcintosh, Hernan Larkin and colleagues, with an educational margi from [employer]. Review of Systems Const Denies body aches, Denies chills, Denies fever(s), Denies headache(s) and Denies poor appetite Eyes Reports no additional complaints ENT Reports dizziness (on occasion) and Denies headache(s) Card Denies chest pain, Denies edema, Reports lightheadedness, Reports palpitations and Denies dyspnea Resp Denies cough and Denies dyspnea GI Denies abdominal pain, Denies constipation, Denies diarrhea, Denies nausea and Denies vomiting Reports no additional complaints Musc Reports no additional complaints and Denies abnormal gait Skin/Breast Reports system reviewed and no additional complaints, except as documented Neuro Denies abnormal gait, Reports dizziness (on occasion) and Denies headache(s) Psych Reports no additional complaints Endo Reports palpitations Physical exam (Primary Care) Vital Signs: Last Vital Signs Temp 97.3 F 09/24/25 10:11 Pulse 72 09/24/25 10:11 BP 132/72 09/24/25 10:11 Pulse Ox 98 09/24/25 10:11 Oxygen Delivery Method Room Air 09/24/25 10:11 BMI result Body Mass Index 27.2 Tobacco/Smoking Status: Tobacco use Status Tobacco use date assessed 09/24/25 09/24/25 10:16 Patient Tobacco Use Status Never used Tobacco 09/24/25 10:16 e-Cigarette/Vaping Use Never Used 09/24/25 10:16 Thrive Assessment: Date of Thrive Assessment Date Thrive assessed 12/20/24 09/24/25 10:16 Const General: cooperative, healthy appearing, comfortable and no acute distress Orientation/consciousness: patient oriented x3 HENMT Head: Yes normocephalic Ears: hearing grossly normal bilaterally and Abnormal EAC present excessive cerumen bilateral General nose exam: Normal external nose present Eyes General: appearance normal, both eyes and all related structures Conjunctivae: conjunctivae normal Neck Neck: Yes full ROM and Yes no lymphadenopathy Resp Effort & Inspection: normal respiratory effort Auscultation: clear to auscultation bilaterally, no crackles, no rales, no rhonchi and no wheezes Cardio Rate: regular rate Rhythm: regular rhythm Skin General skin exam: no rashes or lesions noted Neuro General: patient oriented x3 Gait exam (Neuro): Normal gait present Extrem General: Yes normal to inspection, Yes full ROM and No edema Psych Affect: normal affect Attitude: cooperative Insight: Good insight present (Psych) Judgement: Good judgement present (Psych) Office Procedures Cerumen Removal From which ear canal was the cerumen removed: bilateral Removal: cerumen loop/spoon Notes: patient tolerated procedure well, no complications and ear canal clear 24075-Ehs Wax Removal by Spoon/Curette Coding Level of Care Code Est Pt Level 3 (99303) Diagnoses Breast cancer C50.919 Trigger finger, right middle finger M65.331 Cerumen impaction H61.20 Palpitations R00.2 Axillary web syndrome 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 To continue on Leuprolide every 3 months and Letrozole daily for 5 years. (2) Trigger finger, right middle finger: Code(s): M65.331 - Trigger finger, right middle finger Category: Medical Plan: The patient has a chronic finger deformity from a previous injury and is scheduled for corrective surgery with orthopedics on October 06. The procedure will be done under a local nerve block with lidocaine. (3) Cerumen impaction: Code(s): H61.20 - Impacted cerumen, unspecified ear Category: Medical Plan: The patient presented for cerumen removal. Bilateral cerumen removal was performed in-office using a curette, as irrigation was avoided due to her history of post-procedural dizziness. TM was visualized and intact without perforation or retraction. (4) Palpitations: Code(s): R00.2 - Palpitations Category: Medical Plan: The patient's recent Holter monitor showed a single, seven-beat run of asymptomatic non-sustained ventricular tachycardia (NSVT) at 136 bpm. Her symptomatic palpitations correlated with a normal rhythm. Given the finding of NSVT, referral to cardiology is warranted for further evaluation. The patient has an appointment scheduled for October. She was provided with a log to track her palpitations and educated on red flag symptoms, such as sustained palpitations or chest pain, which would necessitate an emergency room visit. (5) Axillary web syndrome: Code(s): L76.82 - Other postprocedural complications of skin and subcutaneous tissue; L90.5 - Scar conditions and fibrosis of skin Category: Medical Plan: The patient was prescribed a lymphatic drainage vest by her occupational therapist. She was advised that using the device after her upcoming hand surgery should be okay, but she should confirm this with her surgeon. She was also reminded of her OT's advice to wear a compression sleeve for one to two weeks post-surgery to prevent swelling. Plan This note was constructed using voice recognition software. While every effort has been made to ensure accuracy and engine service repairer, still areas may have been included sometimes these areas may affect the content or meeting of the given symptoms. Total time spent caring for the patient today was 20 minutes. This includes time spent before the visit reviewing the chart, time spent during the visit, and time spent after the visit and documentation. Patient was informed and verbally consented to the use of an ambient scribe for clinic note documentation during this visit.
[2025-09-24 10:11] VITALS: BP 132/72; PULSE 72; TEMP 36.3; O2SAT 98; BMI 27.2
--- OUTSIDE RECORDS SUMMARY | 2025-09-24 12:21 | XMS_ITS | Patient Health Record ---
Author Organization [facility] Address [address] [place] [address] Care Team Providers Care Thread Cutter Tender Name Role Phone George Hui MD Unavailable [phone] Allergies No Known Allergies Reason For Referral [...] Status W/U Status Risk Notes Problem Constipation (57826142) Constipation (K59.00) Active confirmed Plan Of Treatment Future Test Test Name Order Date Colonoscopy 07/26/2022 EGD 07/26/2022 Insurance Providers Payer Name Payer Address Payer Phone Subscriber Number Group Number Insured Name Patient Relationship to Insured Coverage Start Date Coverage End Date [facility] [address] [place] [address] [id number] Chelle Ramesh Self - patient is the insured Medical (General) History Surgical History Surgery Date(Month/Year) Ear Tubes Tummy Tuck Breast Lift
--- OUTSIDE RECORDS SUMMARY | 2025-09-24 12:21 | XMS_ITS | Patient Health Record ---
Author Organization [facility] [place] Address [address] [place] [address] Care Team Providers Care Quality Control Coordinator Name Role Phone EscobarCari bradley Unavailable [phone] Allergies No Known Allergies Reason For Referral No Information Medications Medication SIG (Take, Route, Frequency, Duration) Notes Start Date End Date Status Nextstellis 3-14.2 MG Tablet 1 tablet Orally Once a day; Duration: 90 day(s) 02/21/2023 Active Estradiol 0.1 MG/GM Cream 1 gram Vaginal Two times a Week; Duration: 90 days Active Progesterone 100 MG Capsule as directed Orally Active Veozah 45 MG Tablet 1 tablet Orally Once a day; Duration: 90 day(s) 06/02/2023 Active Social History Section Notes: Remarried 2016 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 Exercise: 1-2/wk biking, yoga Alcohol: socially Denies cigarrete or drug use Problems Problem Type SNOMED Code ICD Code Onset Dates Problem Status W/U Status Risk Notes Problem Menstrual disorder (829587411) Irregular menses (N92.6) Active confirmed Problem Menopause (413785976) Perimenopausal symptoms (N95.1) Active confirmed Plan Of Treatment Pending Test Test Name Order Date TISSUE PATHOLOGY, GROSS ONLY 02/21/2023 Insurance Providers Payer Name Payer Address Payer Phone Subscriber Number Group Number Insured Name Patient Relationship to Insured Coverage Start Date Coverage End Date [address] [place] [address] [phone] [id number] Chelle Ramesh Self - patient is the insured Medical (General) History Surgical History Surgery Date(Month/Year) B/l ear tubes B/l breast reduction and implants (salin e), abdominoplasty 2004 B/l implant replacement (encapsulation) 2004
--- OUTSIDE RECORDS SUMMARY | 2025-09-24 12:21 | XMS_ITS | Patient Health Record ---
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 Exercise: 1-2/wk biking, yoga Alcohol: socially Denies cigarrete or drug use Problems Problem Type SNOMED Code ICD Code Onset Dates Problem Status W/U Status Risk Notes Problem Anxiety (94820050) Anxiety (F41.9) Active confirmed Problem Menstrual disorder (346702891) Irregular menses (N92.6) Active confirmed Problem History of breas t implant (Z98.82) Active confirmed Problem Right lower quadrant pain (124088141) Right lower quadrant abdominal pain (R10.31) Active confirmed Problem Menopause (927456511) Perimenopausal symptoms (N95.1) Active confirmed Problem Voice hoarseness (58284869) Hoarseness of voice (R49.0) Active confirmed Plan [...]
--- OUTSIDE RECORDS SUMMARY | 2025-09-24 12:21 | XMS_ITS | Clinical Summary ---
Author Organization [employer] [facility] it[facility] Address [address] [place] [address] Care Team Providers Care Manager Information Name Role Phone Unavailable Primary Care Provider [...] 6 season) 2025 Influenza Vaccine (#1) 2025 Pneumococcal Vaccine: 50+ Ye ars (1 of 1 - PCV) 2025 Zoster Vaccines (1 of 2) 2025 Cervical Cancer Screening: P ap Smear [...] Case Results Patient Name: COURTNEY VENEGAS MR#: [id number] Collected Date: 05/22/2024 Reported Date: 05/29/2024 Specimen #[id number] Final Diagnosis HPV request without Cytologic interpretation. [...] HPV nucleic acid amplification assay manufactured by [employer] [facility] and performed on the [employer] System was used for the qualitative detection [...] liquid based specimens is performed by the [employer] [facility] unless otherwise stated. Test Performed by: [address] [address] Carmenza Rodriguez M.D., Director HISTORICAL TESTING LAB RESULTING AGENCY 05/22/2024 Vanessa Rizo MD LAB CYTOLOGY ORDERABLES Final Re sult HISTORICAL TESTING LAB RESULTING AGENCY from Last 3 Months or Most Recently Relevant to Health Maintenance
--- OUTSIDE RECORDS SUMMARY | 2025-09-24 12:21 | XMS_ITS | Clinical Summary ---
Author Organization [employer] [facility] Prior to 03/08/25 Address [address] [place] [address] Care Team Providers Care Info Specialist Name Role Phone Unavailable Primary Care Provider [...]
== END 2025-09-24 10:49 | disposition home or self-care (01) ==
LOC: HO.HMCH 10:07
DX: R00.2 Palpitations (principal); C50.919 Malignant neoplasm of unspecified site of unspecified female breast; M65.331 Trigger finger, right middle finger; H61.23 Impacted cerumen, bilateral; L76.82 Other postprocedural complications of skin and subcutaneous tissue; L90.5 Scar conditions and fibrosis of skin

== ENCOUNTER → 2025-09-24 10:06 | Outpatient (BNVA) | payer OTHER, SELFPAY | DX: R00.2 Palpitations (principal); C50.919 Malignant neoplasm of unspecified site of unspecified female breast; Z79.818 Long term (current) use of other agents affecting estrogen receptors and estrogen levels; Z79.811 Long term (current) use of aromatase inhibitors; M65.331 Trigger finger, right middle finger; H61.23 Impacted cerumen, bilateral; L76.82 Other postprocedural complications of skin and subcutaneous tissue; L90.5 Scar conditions and fibrosis of skin | CPT/HCPCS: 69210; 99212 ==